=== PATIENT | female | born 1950 | race African-American/Black ===

== ENCOUNTER 2018-03-23 18:30 | Inpatient (IN) | payer MEDICARE, OTHER ==
[~2018-03-23] VITALS: Ht 162.6 cm; Wt 53.1 kg
[2018-03-23] MEDS ORDERED: ONDANSETRON HCL 4MG/2ML INJ IV ONE (18:45)
[2018-03-23] MEDS ORDERED: METHYLPREDNISOLONE SOD SUCC 125 MG/2 ML VIAL IV ONE (18:45)
[2018-03-23] MEDS ORDERED: ALBUTEROL (0.083%) 2.5MG/3ML NEB HHN ONE (18:45)
[2018-03-23 19:33] LABS: CHLORIDE 105 mEq/L (98-107)
[2018-03-23 19:37] LABS: ETHANOL BLOOD < 10 mg/dL
[2018-03-23] MEDS ORDERED: MAGNESIUM 2 G PREMIX 50 ML IV ONE (20:45)
[2018-03-23 20:53] LABS: BASOPHILS % 0.7 % (0.0-2.0); EOSINOPHILS % 0.6 % (0.0-5.0); HEMATOCRIT. 47.9 % (36.0-48.0); HEMOGLOBIN. 15.8 g/dL (12.0-16.0); LYMPHOCYTES % 17.7 % (20.0-50.0); MEAN CORPUSCULAR HEMOGLOBIN 30.9 pg (28.0-32.0); MEAN CORPUSCULAR VOLUME 93.5 fL (81.0-99.0); MEAN PLATELET VOLUME 6.9 fl (7.4-10.4); MONOCYTES % 11.3 % (2.0-8.0); NEUTROPHILS % 69.7 % (40.0-76.0); PLATELET 230 x1000/uL (130-400); RED BLOOD CELL COUNT 5.13 mill/uL (4.2-5.4); RED CELL DISTRIBUTION WIDTH 13.7 % (11.6-14.6)
[2018-03-23 21:29] LABS: INR 1.1; PROTHROMBIN TIME 10.7 sec (9.1-11.1)
[2018-03-23] MEDS ORDERED: CLONIDINE 0.1MG TABLET PO PRN (21:45)
[2018-03-23] MEDS ORDERED: IPRATROPIUM/ALBUTEROL 0.5-3(2.5)MG/3ML NEB INH SCH (21:45)
[2018-03-23] MEDS ORDERED: IPRATROPIUM/ALBUTEROL 0.5-3(2.5)MG/3ML NEB INH PRN (21:45)
[2018-03-23] MEDS ORDERED: ONDANSETRON HCL 4MG/2ML INJ IV PRN (21:45)
[2018-03-23] MEDS ORDERED: HYDROCODONE/ACETAMINOPHEN 5/325MG TABLET PO PRN (21:45)
[2018-03-23] MEDS ORDERED: ACETAMINOPHEN 325MG TABLET PO PRN (21:45)
[2018-03-23] MEDS ORDERED: GUAIFENESIN 200MG/10ML SUGAR FREE UDC PO PRN (21:45)
[2018-03-23] MEDS ORDERED: DOCUSATE SODIUM 100MG CAPSULE PO PRN (21:45)
[2018-03-23] MEDS ORDERED: MAGNESIUM/ALUMINUM HYDROXIDE/SIMETHICONE 30ML UDC PO PRN (21:45)
[2018-03-24] VITALS (11 sets, daily range): BP systolic 106–154; BP diastolic 47–90
[2018-03-24 00:11] LABS: *AMPHETAMINES SCREEN URINE NEGATIVE (NEGATIVE); *BARBITURATES SCREEN URINE NEGATIVE (NEGATIVE)
[2018-03-24 00:13] LABS: *BENZODIAZEPINES SCREEN URINE NEGATIVE (NEGATIVE); *COCAINE SCREEN URINE NEGATIVE (NEGATIVE); CANNABINOID URINE SCREEN NEGATIVE (NEGATIVE); METHADONE URINE SCREEN NEGATIVE (NEGATIVE); OPIATES URINE SCREEN PRESUMTIVE POSITIVE (NEGATIVE); PHENCYCLIDINE URINE SCREEN NEGATIVE (NEGATIVE)
[2018-03-24 02:24] LABS: CHLORIDE 104 mEq/L (98-107)
[2018-03-24 02:32] LABS: CREATINE KINASE 181 IU/L (26-192)
[2018-03-24 02:34] LABS: CREATINE KINASE MB FRACTION 3.6 ng/mL (0.5-3.6)
[2018-03-24] MEDS: METHYLPREDNISOLONE SOD SUCC 40 MG/ML VIAL IV SCH ×2 (05:44→13:51)
[2018-03-24] MEDS: PANTOPRAZOLE 40MG DR TABLET PO SCH (05:47)
[2018-03-24] MEDS: IPRATROPIUM/ALBUTEROL 0.5-3(2.5)MG/3ML NEB INH SCH ×4 (08:27→20:03)
[2018-03-24] MEDS: ENOXAPARIN 40MG/0.4ML SYR SUBCUT SCH (08:58)
[2018-03-24] MEDS ORDERED: HYDR-4009 MT (10:27)
[2018-03-24] MEDS ORDERED: S350 MT (10:27)
[2018-03-24] MEDS ORDERED: LISI30TA36 MT (10:27)
[2018-03-24 10:32] LABS: BASOPHILS % 0.4 % (0.0-2.0); HEMATOCRIT. 46.1 % (36.0-48.0); HEMOGLOBIN. 15.3 g/dL (12.0-16.0); LYMPHOCYTES % 17.9 % (20.0-50.0); MEAN CORPUSCULAR VOLUME 93.3 fL (81.0-99.0); MEAN PLATELET VOLUME 6.8 fl (7.4-10.4); MONOCYTES % 2.5 % (2.0-8.0); NEUTROPHILS % 79.2 % (40.0-76.0); PLATELET 222 x1000/uL (130-400); RED BLOOD CELL COUNT 4.95 mill/uL (4.2-5.4); RED CELL DISTRIBUTION WIDTH 13.7 % (11.6-14.6)
[2018-03-24] MEDS ORDERED: ALBU2.5V13 NEB (10:32)
[2018-03-24] MEDS ORDERED: OXYC-611 MT (10:32)
[2018-03-24] MEDS ORDERED: CYCLOBENZAPRINE 10MG TABLET PO PRN (10:45)
[2018-03-24 11:27] LABS: BG BASE EXCESS 3.7 mmol/L (-2.0-2.0); BG CARBOXYHEMOGLOBIN 0.6 % (0.5-1.5); BG FRACTION INSPIRED OXYGEN 28; BG HCO3 ACT 29.1 mmol/L (22.0-26.0); BG METHEMOGLOBIN 0.2 % (0.0-1.5); BG OXYGEN SATURATION 86.9 % (92.0-98.5); BG OXYHEMOGLOBIN 86.2 % (94.0-97.0); BG PCO2 46.7 mmHg (35.0-45.0); BG PH 7.413 (7.350-7.450); BG PO2 50.7 mmHg (75.0-100.0); BG SAMPLE SITE RIGHT BRACHIAL; BG TOTAL HEMOGLOBIN 15.7 g/dL (12.0-18.0); BG VENT MODE NASAL CANNULA
[2018-03-24] MEDS ORDERED: CARISOPRODOL 350 MG TABLET PO PRN (11:45)
[2018-03-24 12:03] LABS: LDL CHOLESTEROL 107 mg/dL (5-100)
[2018-03-24 12:04] LABS: CREATINE KINASE 190 IU/L (26-192); HDL CHOLESTEROL 76 mg/dL (40-59)
[2018-03-24 12:06] LABS: CREATINE KINASE MB FRACTION 4.1 ng/mL (0.5-3.6)
[2018-03-24] MEDS: NICOTINE 14MG PATCH TD SCH (12:46)
[2018-03-24] MEDS: LISINOPRIL 10MG TABLET PO SCH (12:47)
[2018-03-24] MEDS ORDERED: AMLO2.5T45 MT (13:07)
[2018-03-24] MEDS ORDERED: ZOLP5TAB2 PO (13:17)
[2018-03-24] MEDS: OXYCODONE HCL 10MG TABLET SR 12HR PO SCH ×2 (13:52→20:27)
[2018-03-24] MEDS: AMLODIPINE 2.5MG TABLET PO SCH (13:52)
[2018-03-24] MEDS: BUDESONIDE 0.5MG/2ML NEB HHN SCH (20:03)
[2018-03-24] MEDS: CARISOPRODOL 350 MG TABLET PO PRN (21:35)
[2018-03-25] VITALS (13 sets, daily range): BP systolic 88–137; BP diastolic 56–81
[2018-03-25] MEDS: IPRATROPIUM/ALBUTEROL 0.5-3(2.5)MG/3ML NEB INH SCH ×6 (00:19→20:00)
[2018-03-25] MEDS: ZOLPIDEM TARTRATE 5MG TABLET PO PRN (00:35)
[2018-03-25] MEDS: HYDROCODONE/ACETAMINOPHEN 10/325MG TABLET PO PRN ×2 (00:35→17:55)
[2018-03-25] MEDS: BUDESONIDE 0.5MG/2ML NEB HHN SCH ×2 (08:34→20:00)
[2018-03-25] MEDS: OXYCODONE HCL 10MG TABLET SR 12HR PO SCH ×2 (09:03→20:46)
[2018-03-25] MEDS: NICOTINE 14MG PATCH TD SCH (09:04)
[2018-03-25] MEDS: LISINOPRIL 10MG TABLET PO SCH (09:04)
[2018-03-25] MEDS: PREDNISONE 20MG TABLET PO SCH (09:05)
[2018-03-25] MEDS: ENOXAPARIN 40MG/0.4ML SYR SUBCUT SCH (09:06)
[2018-03-25] MEDS: PANTOPRAZOLE 40MG DR TABLET PO SCH (09:19)
[2018-03-25 09:39] LABS: BASOPHILS % 0.5 % (0.0-2.0); EOSINOPHILS % 0.1 % (0.0-5.0); HEMATOCRIT. 45.7 % (36.0-48.0); HEMOGLOBIN. 15.1 g/dL (12.0-16.0); LYMPHOCYTES % 15.2 % (20.0-50.0); MEAN CORPUSCULAR HEMOGLOBIN 30.8 pg (28.0-32.0); MEAN CORPUSCULAR VOLUME 93.3 fL (81.0-99.0); MEAN PLATELET VOLUME 6.7 fl (7.4-10.4); MONOCYTES % 6.5 % (2.0-8.0); NEUTROPHILS % 77.7 % (40.0-76.0); PLATELET 215 x1000/uL (130-400); RED CELL DISTRIBUTION WIDTH 13.7 % (11.6-14.6)
[2018-03-25] MEDS: AMLODIPINE 2.5MG TABLET PO SCH (10:00)
[2018-03-25 10:08] LABS: CHLORIDE 101 mEq/L (98-107)
[2018-03-25] MEDS: CARISOPRODOL 350 MG TABLET PO PRN (12:09)
[2018-03-25] MEDS ORDERED: IPRA3AMP9 NEB (19:04)
[2018-03-25] MEDS ORDERED: PANT40TA4 PO (19:04)
[2018-03-25] MEDS ORDERED: FLUT1AER IH (19:04)
[2018-03-26] VITALS (10 sets, daily range): BP systolic 96–113; BP diastolic 61–76
[2018-03-26] MEDS: IPRATROPIUM/ALBUTEROL 0.5-3(2.5)MG/3ML NEB INH SCH ×4 (00:22→12:13)
[2018-03-26] MEDS: ZOLPIDEM TARTRATE 5MG TABLET PO PRN (00:31)
[2018-03-26] MEDS: CARISOPRODOL 350 MG TABLET PO PRN (00:31)
[2018-03-26] MEDS: BUDESONIDE 0.5MG/2ML NEB HHN SCH (08:18)
[2018-03-26] MEDS: PANTOPRAZOLE 40MG DR TABLET PO SCH (08:20)
[2018-03-26] MEDS: ENOXAPARIN 40MG/0.4ML SYR SUBCUT SCH (08:21)
[2018-03-26] MEDS: NICOTINE 14MG PATCH TD SCH (08:22)
[2018-03-26] MEDS: LISINOPRIL 10MG TABLET PO SCH (08:22)
[2018-03-26] MEDS: PREDNISONE 20MG TABLET PO SCH (08:23)
[2018-03-26] MEDS: AMLODIPINE 2.5MG TABLET PO SCH (08:23)
[2018-03-26] MEDS: OXYCODONE HCL 10MG TABLET SR 12HR PO SCH (08:25)
[2018-03-26] MEDS ORDERED: FLUT1DIS3 INH (10:23)
[2018-03-26] MEDS ORDERED: ALPRAZOLAM 0.5 MG TABLET PO PRN (12:30)
== END 2018-03-26 17:00 | disposition home or self-care (01) | DRG 189 ==
LOC: ER 18:30 → 5EST 20:35 → EDBEDREQTM 20:38 → EDBEDREQSVC 20:38 → EDBEDREQ 20:38 → ENRESERV 23:37
PROVIDERS: ADMIT Internal Medicine; ATTEND Internal Medicine
PROC: 5A09357 Assistance with Respiratory Ventilation, Less than 24 Consecutive Hours, Continuous Positive Airway Pressure (ICD-10-PCS; principal; 2018-03-23)
DX: J96.01 Acute respiratory failure with hypoxia (principal); J44.1 Chronic obstructive pulmonary disease with (acute) exacerbation; F11.20 Opioid dependence, uncomplicated; F17.210 Nicotine dependence, cigarettes, uncomplicated; I10 Essential (primary) hypertension; M62.838 Other muscle spasm; Z99.81 Dependence on supplemental oxygen; Z79.51 Long term (current) use of inhaled steroids; Z79.899 Other long term (current) drug therapy
CPT/HCPCS: 36415; 36600; 71045; 80048; 80061; 80305; 82375; 82550; 82553; 82805; 83735; 83880; 84443; 84484; 93005; 93970; 94640; 94660; 96374; 96375; 99291; G0482; J1650; J2405; J2920; J2930; J3475; J7512; J7620; J7626

== ENCOUNTER 2019-03-21 05:12 | Inpatient (IN) | payer MEDICAID, MEDICARE ==
[2019-03-21] VITALS (8 sets, daily range): BP systolic 91–133; BP diastolic 56–75
[~2019-03-21] VITALS: Ht 162.6 cm; Wt 53.5 kg
[~2019-03-21 05:12] MED LIST: ALBU2.5V13 NEB; AMLO2.5T45 MT; CARI-166 MT; FLUT1DIS3 INH; HYDR-4009 MT; IPRA3AMP9 NEB; LISI30TA36 MT; OXYC-611 MT; PANT40TA4 PO; ZOLP5TAB2 PO
[2019-03-21] MEDS ORDERED: METHYLPREDNISOLONE SOD SUCC 125 MG/2 ML VIAL IV STA (05:14)
[2019-03-21] MEDS ORDERED: ONDANSETRON HCL 4MG/2ML INJ IV STA (05:14)
[2019-03-21] MEDS ORDERED: IPRATROPIUM BROMIDE (0.02%) 0.5MG/2.5ML NEB HHN STA (05:14)
[2019-03-21] MEDS ORDERED: MAGNESIUM 2 G PREMIX 50 ML IV ONE (05:15)
[2019-03-21] MEDS: ALBUTEROL (0.083%) 2.5MG/3ML NEB HHN SCH (05:30)
[2019-03-21 06:03] LABS: BG BASE EXCESS 6.5 mmol/L (-2.0-2.0); BG BILEVEL POS AIRWAY PRESSURE 18/5; BG CARBOXYHEMOGLOBIN 1.4 % (0.5-1.5); BG DEOXYHEMOGLOBIN 1.4 % (0.0-5.0); BG FRACTION INSPIRED OXYGEN 50; BG HCO3 ACT 33.4 mmol/L (22.0-26.0); BG OXYGEN SATURATION 98.6 % (92.0-98.5); BG OXYHEMOGLOBIN 97.2 % (94.0-97.0); BG PCO2 59.6 mmHg (35.0-45.0); BG PH 7.367 (7.350-7.450); BG PO2 146.2 mmHg (75.0-100.0); BG SAMPLE SITE RIGHT RADIAL; BG TOTAL HEMOGLOBIN 11.9 g/dL (12.0-18.0); BG VENT MODE MASK - BIPAP; BG VENT RATE 20 set
[2019-03-21 06:06] LABS: BASOPHILS % 0.3 % (0.0-2.0); EOSINOPHILS % 0.1 % (0.0-5.0); HEMATOCRIT. 36.3 % (36.0-48.0); HEMOGLOBIN. 11.7 g/dL (12.0-16.0); LYMPHOCYTES % 27.6 % (20.0-50.0); MEAN CORPUSCULAR HEMOGLOBIN 31.4 pg (28.0-32.0); MEAN CORPUSCULAR VOLUME 97.5 fL (81.0-99.0); MEAN PLATELET VOLUME 6.5 fl (7.4-10.4); PLATELET 412 x1000/uL (130-400); RED BLOOD CELL COUNT 3.72 mill/uL (4.2-5.4); RED CELL DISTRIBUTION WIDTH 15.5 % (11.6-14.6)
[2019-03-21 06:11] LABS: CHLORIDE 105 mEq/L (98-107)
[2019-03-21] MEDS ORDERED: VANCOMYCIN 1 G PREMIX 200 ML IV ONE (06:30)
[2019-03-21] MEDS ORDERED: PIPERACILLIN/TAZ 3.375G PREMIX 50 ML IV ONE (06:30)
[2019-03-21] MEDS ORDERED: ONDANSETRON HCL 4MG/2ML INJ IV PRN (07:30)
[2019-03-21] MEDS: IPRATROPIUM BROMIDE (0.02%) 0.5MG/2.5ML NEB HHN SCH ×3 (12:42→21:04)
[2019-03-21] MEDS: METHYLPREDNISOLONE SOD SUCC 40 MG/ML VIAL IV SCH ×2 (12:43→17:14)
[2019-03-21] MEDS ORDERED: FUROSEMIDE 40MG/4ML VIAL IVP NR (14:30)
[2019-03-21 14:31] LABS: CLARITY URINE CLEAR (CLEAR); COLOR URINE YELLOW (YELLOW); KETONES URINE NEGATIVE (NEGATIVE); LEUKOCYTE ESTERASE URINE NEGATIVE (NEGATIVE); NITRITE URINE NEGATIVE (NEGATIVE); OCCULT BLOOD URINE NEGATIVE (NEGATIVE); PH URINE 7.5 (4.5-8.0); PROTEIN URINE NEGATIVE (NEGATIVE); SPECIFIC GRAVITY URINE 1.011 (1.005-1.030); UROBILINOGEN URINE 0.2 E.U./dL (0.2-1.0)
[2019-03-21 14:50] LABS: CANNABINOID URINE SCREEN NEGATIVE (NEGATIVE); PHENCYCLIDINE URINE SCREEN NEGATIVE (NEGATIVE)
[2019-03-21 14:52] LABS: *COCAINE SCREEN URINE NEGATIVE (NEGATIVE)
[2019-03-21 14:53] LABS: OPIATES URINE SCREEN PRESUMTIVE POSITIVE (NEGATIVE)
[2019-03-21 14:56] LABS: METHADONE URINE SCREEN NEGATIVE (NEGATIVE)
[2019-03-21 14:57] LABS: *AMPHETAMINES SCREEN URINE NEGATIVE (NEGATIVE); *BARBITURATES SCREEN URINE NEGATIVE (NEGATIVE)
[2019-03-21 14:59] LABS: *BENZODIAZEPINES SCREEN URINE NEGATIVE (NEGATIVE)
[2019-03-21] MEDS ORDERED: IPRATROPIUM/ALBUTEROL 0.5-3(2.5)MG/3ML NEB HHN PRN (16:15)
[2019-03-21] MEDS ORDERED: BISACODYL 5MG TABLET PO PRN (17:00)
[2019-03-21] MEDS: DOCUSATE SODIUM 100MG CAPSULE PO SCH (17:14)
[2019-03-21] MEDS: ACETAMINOPHEN 325MG TABLET PO PRN (17:15)
[2019-03-22] VITALS (9 sets, daily range): BP systolic 95–121; BP diastolic 52–77
[2019-03-22] MEDS: IPRATROPIUM BROMIDE (0.02%) 0.5MG/2.5ML NEB HHN SCH ×6 (00:09→21:17)
[2019-03-22] MEDS: ACETAMINOPHEN 325MG TABLET PO PRN (00:32)
[2019-03-22] MEDS: METHYLPREDNISOLONE SOD SUCC 40 MG/ML VIAL IV SCH ×2 (01:07→10:05)
[2019-03-22] MEDS: DOCUSATE SODIUM 100MG CAPSULE PO SCH (08:15)
[2019-03-22] MEDS: FUROSEMIDE 40MG/4ML VIAL IVP SCH (08:15)
[2019-03-22] MEDS ORDERED: KETOROLAC 30MG/ML VIAL IV PRN (10:00)
[2019-03-22] MEDS ORDERED: KETOROLAC 15MG/ML VIAL IV PRN (10:00)
[2019-03-22] MEDS: HYDROCODONE/ACETAMINOPHEN 5/325MG TABLET PO PRN ×3 (11:39→20:33)
[2019-03-22 14:58] LABS: BASOPHILS % 0.5 % (0.0-2.0); EOSINOPHILS % 0.6 % (0.0-5.0); HEMOGLOBIN. 12.6 g/dL (12.0-16.0); LYMPHOCYTES % 9.3 % (20.0-50.0); MEAN CORPUSCULAR HEMOGLOBIN 31.6 pg (28.0-32.0); MEAN CORPUSCULAR VOLUME 95.6 fL (81.0-99.0); MEAN PLATELET VOLUME 6.7 fl (7.4-10.4); MONOCYTES % 3.8 % (2.0-8.0); NEUTROPHILS % 85.8 % (40.0-76.0); PLATELET 428 x1000/uL (130-400); RED BLOOD CELL COUNT 3.97 mill/uL (4.2-5.4)
[2019-03-22 15:11] LABS: CHLORIDE 96 mEq/L (98-107)
[2019-03-22] MEDS: GUAIFENESIN 600MG ER TABLET PO SCH (20:31)
[2019-03-23] VITALS: BP 124/76
[2019-03-23] MEDS: IPRATROPIUM BROMIDE (0.02%) 0.5MG/2.5ML NEB HHN SCH ×5 (00:48→17:19)
[2019-03-23 04:00] VITALS: BP 130/78
[2019-03-23 08:26] LABS: EOSINOPHILS % 0.1 % (0.0-5.0); HEMATOCRIT. 39.7 % (36.0-48.0); HEMOGLOBIN. 13.1 g/dL (12.0-16.0); LYMPHOCYTES % 23.8 % (20.0-50.0); MEAN CORPUSCULAR HEMOGLOBIN 31.1 pg (28.0-32.0); MEAN CORPUSCULAR VOLUME 94.5 fL (81.0-99.0); MEAN PLATELET VOLUME 6.6 fl (7.4-10.4); MONOCYTES % 10.9 % (2.0-8.0); NEUTROPHILS % 64.2 % (40.0-76.0); PLATELET 440 x1000/uL (130-400)
[2019-03-23 08:31] VITALS: BP 108/63
[2019-03-23 08:31] LABS: CHLORIDE 97 mEq/L (98-107)
[2019-03-23] MEDS: GUAIFENESIN 600MG ER TABLET PO SCH (08:56)
[2019-03-23] MEDS: DOCUSATE SODIUM 100MG CAPSULE PO SCH (08:56)
[2019-03-23] MEDS: FUROSEMIDE 40MG/4ML VIAL IVP SCH (08:56)
[2019-03-23] MEDS ORDERED: PREDNISONE 20MG TABLET PO SCH (09:00)
[2019-03-23] MEDS: HYDROCODONE/ACETAMINOPHEN 5/325MG TABLET PO PRN ×2 (09:07→13:45)
[2019-03-23] MEDS ORDERED: POTASSIUM CHLORIDE 20MEQ TABLET SR PO SCH (11:15)
[2019-03-23] MEDS ORDERED: P20 MT (11:38)
[2019-03-23] MEDS ORDERED: HYDR-4001 MT (11:38)
[2019-03-23 14:48] VITALS: BP 110/65
[2019-03-23 16:33] VITALS: BP 100/67
== END 2019-03-23 18:22 | disposition home health service (06) | DRG 291 ==
LOC: ER 05:12 → 3WST 05:37 → EDBEDREQSVC 05:39 → EDBEDREQTM 05:39 → EDBEDREQ 05:39 → ENRESERV 09:50 → 8WST 03-22 15:04
PROVIDERS: ADMIT Internal Medicine; ATTEND Internal Medicine
PROC: 5A09357 Assistance with Respiratory Ventilation, Less than 24 Consecutive Hours, Continuous Positive Airway Pressure (ICD-10-PCS; principal; 2019-03-21)
DX: I11.0 Hypertensive heart disease with heart failure (principal); J96.21 Acute and chronic respiratory failure with hypoxia; J44.1 Chronic obstructive pulmonary disease with (acute) exacerbation; E44.1 Mild protein-calorie malnutrition; E87.2 Acidosis; I50.43 Acute on chronic combined systolic (congestive) and diastolic (congestive) heart failure; D72.821 Monocytosis (symptomatic); I07.1 Rheumatic tricuspid insufficiency; I27.20 Pulmonary hypertension, unspecified; K59.00 Constipation, unspecified; F17.210 Nicotine dependence, cigarettes, uncomplicated; Z82.49 Family history of ischemic heart disease and other diseases of the circulatory system; Z82.3 Family history of stroke; Z99.81 Dependence on supplemental oxygen; Z68.20 Body mass index [BMI] 20.0-20.9, adult; Z79.899 Other long term (current) drug therapy; Z71.6 Tobacco abuse counseling
CPT/HCPCS: 36415; 36600; 71045; 80048; 80305; 81003; 82375; 82805; 83605; 83880; 84484; 93005; 93306; 94640; 94644; 94660; 97116; 97161; 97166; 99291; J1940; J2405; J2543; J2920; J2930; J3370; J3475; J7512; J7611

== ENCOUNTER 2019-04-16 00:40 | Inpatient (IN) | payer MEDICARE ==
[~2019-04-16] VITALS: Ht 162.6 cm; Wt 57.2 kg
[~2019-04-16 00:40] MED LIST changes: -CARI-166 MT; +CARI350T28 MT; +HYDR-4001 MT; +P20 MT
[2019-04-16] MEDS ORDERED: IPRATROPIUM BROMIDE (0.02%) 0.5MG/2.5ML NEB HHN STA (00:43)
[2019-04-16] MEDS ORDERED: METHYLPREDNISOLONE SOD SUCC 125 MG/2 ML VIAL IV STA (00:43)
[2019-04-16] MEDS ORDERED: ALBUTEROL (0.083%) 2.5MG/3ML NEB HHN STA (00:43)
[2019-04-16] MEDS ORDERED: MAGNESIUM 2 G PREMIX 50 ML IV ONE (00:45)
[2019-04-16 01:09] LABS: HEMATOCRIT. 39.4 % (36.0-48.0); HEMOGLOBIN. 12.9 g/dL (12.0-16.0); LYMPHOCYTES % 9.5 % (20.0-50.0); MEAN CORPUSCULAR HEMOGLOBIN 30.9 pg (28.0-32.0); MEAN CORPUSCULAR VOLUME 94.7 fL (81.0-99.0); MEAN PLATELET VOLUME 6.6 fl (7.4-10.4); MONOCYTES % 4.9 % (2.0-8.0); NEUTROPHILS % 84.6 % (40.0-76.0); PLATELET 262 x1000/uL (130-400); RED BLOOD CELL COUNT 4.16 mill/uL (4.2-5.4); RED CELL DISTRIBUTION WIDTH 14.5 % (11.6-14.6)
[2019-04-16 01:18] LABS: PROTHROMBIN TIME 10.8 sec (9.6-11.0)
[2019-04-16 01:25] LABS: CHLORIDE 97 mEq/L (98-107)
[2019-04-16] MEDS ORDERED: DOXYCYCLINE HYCLATE 100 MG/VIAL IV ONE (01:30)
[2019-04-16 01:51] LABS: BG BASE EXCESS 5.7 mmol/L (-2.0-2.0); BG BILEVEL POS AIRWAY PRESSURE 15/5; BG CARBOXYHEMOGLOBIN 1.2 % (0.5-1.5); BG DEOXYHEMOGLOBIN 3.7 % (0.0-5.0); BG FRACTION INSPIRED OXYGEN 60; BG HCO3 ACT 33.4 mmol/L (22.0-26.0); BG METHEMOGLOBIN 0.2 % (0.0-1.5); BG OXYGEN SATURATION 96.2 % (92.0-98.5); BG OXYHEMOGLOBIN 94.9 % (94.0-97.0); BG PCO2 62.9 mmHg (35.0-45.0); BG PH 7.343 (7.350-7.450); BG PO2 85.9 mmHg (75.0-100.0); BG SAMPLE SITE RIGHT RADIAL; BG TOTAL HEMOGLOBIN 13.7 g/dL (12.0-18.0); BG VENT MODE MASK - BIPAP; BG VENT RATE 16 set
[2019-04-16] MEDS ORDERED: DOXYCYCLINE 100 MG in SODIUM CHLORIDE 0.9% 100 ML IV SCH (03:00)
[2019-04-16] MEDS ORDERED: ONDANSETRON HCL 4MG/2ML INJ IV PRN (04:00)
[2019-04-16] MEDS ORDERED: LEVOFLOXACIN 500MG PREMIX 100 ML IV SCH (04:00)
[2019-04-16] MEDS ORDERED: ENOXAPARIN 40MG/0.4ML SYR SUBCUT SCH (04:00)
[2019-04-16] MEDS ORDERED: HYDRALAZINE 20MG/ML VIAL IV PRN (04:00)
[2019-04-16] MEDS ORDERED: DIPHENHYDRAMINE 50MG/ML VIAL IV PRN (04:00)
[2019-04-16] MEDS ORDERED: IPRATROPIUM/ALBUTEROL 0.5-3(2.5)MG/3ML NEB HHN SCH (04:00)
[2019-04-16] MEDS ORDERED: GUAIFENESIN 200MG/10ML SUGAR FREE UDC PO PRN (04:00)
[2019-04-16] MEDS ORDERED: IPRATROPIUM/ALBUTEROL 0.5-3(2.5)MG/3ML NEB NEB PRN (04:00)
[2019-04-16] MEDS ORDERED: MAGNESIUM/ALUMINUM HYDROXIDE/SIMETHICONE 30ML UDC PO PRN (04:00)
[2019-04-16] MEDS ORDERED: LORAZEPAM 2MG/ML CPJ IV PRN (04:30)
[2019-04-16] MEDS: SODIUM CHLORIDE 0.9% INJ 3ML FLUSH IVF SCH ×3 (06:00→22:40)
[2019-04-16] MEDS ORDERED: METHYLPREDNISOLONE SOD SUCC 125 MG/2 ML VIAL IV SCH (06:00)
[2019-04-16] MEDS: CLONIDINE 0.1MG TABLET PO PRN (07:30)
[2019-04-16] MEDS: IPRATROPIUM/ALBUTEROL 0.5-3(2.5)MG/3ML NEB HHN SCH ×5 (07:48→23:54)
[2019-04-16] MEDS: KETOROLAC 30MG/ML VIAL IV PRN (07:48)
[2019-04-16 08:50] VITALS: BP 133/72
[2019-04-16] MEDS ORDERED: AMLODIPINE 5MG TABLET PO SCH (10:00)
[2019-04-16] MEDS ORDERED: PROMETHAZINE/DEXTROMETHORPHAN 6.25-15MG/5ML BOTTLE 120ML PO PRN (10:00)
[2019-04-16] MEDS: GUAIFENESIN 600MG ER TABLET PO SCH ×2 (10:44→21:39)
[2019-04-16] MEDS: NICOTINE 21MG PATCH TD SCH (10:44)
[2019-04-16] MEDS: FAMOTIDINE 20MG TABLET PO SCH ×2 (10:45→21:39)
[2019-04-16] MEDS: ACETAMINOPHEN 325MG TABLET PO PRN ×2 (10:46→21:40)
[2019-04-16] MEDS ORDERED: GUAIFENESIN-DM 200MG-20MG/10ML UDC PO PRN (13:45)
[2019-04-16] MEDS: METHYLPREDNISOLONE SOD SUCC 125 MG/2 ML VIAL IV SCH ×3 (13:47→22:00)
[2019-04-16] MEDS: ENOXAPARIN 40MG/0.4ML SYR SUBCUT SCH (13:49)
[2019-04-16 14:38] LABS: BG BASE EXCESS 3.2 mmol/L (-2.0-2.0); BG CARBOXYHEMOGLOBIN 0.9 % (0.5-1.5); BG DEOXYHEMOGLOBIN 4.9 % (0.0-5.0); BG FRACTION INSPIRED OXYGEN 32; BG HCO3 ACT 31.4 mmol/L (22.0-26.0); BG METHEMOGLOBIN 0.2 % (0.0-1.5); BG PCO2 65.3 mmHg (35.0-45.0); BG PO2 80.4 mmHg (75.0-100.0); BG SAMPLE SITE RIGHT BRACHIAL; BG TOTAL HEMOGLOBIN 13.6 g/dL (12.0-18.0); BG VENT MODE NASAL CANNULA
[2019-04-16 16:00] VITALS: BP 143/81
[2019-04-16] MEDS: LEVOFLOXACIN 500MG PREMIX 100 ML IV SCH (16:47)
[2019-04-16] MEDS: AMLODIPINE 2.5MG TABLET PO SCH (17:59)
[2019-04-16] MEDS: SILDENAFIL CITRATE 20MG TABLET PO SCH ×2 (18:00→22:39)
[2019-04-16 20:00] VITALS: BP 158/98
[2019-04-16] MEDS ORDERED: MAGNESIUM 2 G PREMIX 50 ML IV NR (22:00)
[2019-04-17] VITALS (7 sets, daily range): BP systolic 125–166; BP diastolic 73–99
[2019-04-17] MEDS: IPRATROPIUM/ALBUTEROL 0.5-3(2.5)MG/3ML NEB HHN SCH ×5 (04:02→21:24)
[2019-04-17] MEDS: SODIUM CHLORIDE 0.9% INJ 3ML FLUSH IVF SCH ×2 (06:22→14:08)
[2019-04-17] MEDS: METHYLPREDNISOLONE SOD SUCC 125 MG/2 ML VIAL IV SCH ×3 (06:23→21:20)
[2019-04-17] MEDS: SILDENAFIL CITRATE 20MG TABLET PO SCH ×3 (06:30→21:21)
[2019-04-17 09:07] LABS: BG BASE EXCESS 8.6 mmol/L (-2.0-2.0); BG BILEVEL POS AIRWAY PRESSURE 15/5; BG CARBOXYHEMOGLOBIN 0.9 % (0.5-1.5); BG DEOXYHEMOGLOBIN 4.7 % (0.0-5.0); BG FRACTION INSPIRED OXYGEN 35; BG HCO3 ACT 36.5 mmol/L (22.0-26.0); BG OXYGEN SATURATION 95.3 % (92.0-98.5); BG OXYHEMOGLOBIN 94.4 % (94.0-97.0); BG PCO2 64.4 mmHg (35.0-45.0); BG PH 7.371 (7.350-7.450); BG PO2 80.3 mmHg (75.0-100.0); BG SAMPLE SITE RIGHT RADIAL; BG TOTAL HEMOGLOBIN 14.6 g/dL (12.0-18.0); BG VENT MODE MASK - BIPAP; BG VENT RATE 14 set
[2019-04-17] MEDS: AMLODIPINE 2.5MG TABLET PO SCH (09:53)
[2019-04-17] MEDS: GUAIFENESIN 600MG ER TABLET PO SCH ×2 (09:53→21:20)
[2019-04-17] MEDS: FAMOTIDINE 20MG TABLET PO SCH ×2 (09:53→21:20)
[2019-04-17] MEDS: NICOTINE 21MG PATCH TD SCH (09:53)
[2019-04-17] MEDS: ENOXAPARIN 40MG/0.4ML SYR SUBCUT SCH (11:55)
[2019-04-17] MEDS: CLONIDINE 0.1MG TABLET PO PRN ×2 (11:57→21:30)
[2019-04-17] MEDS: LEVOFLOXACIN 500MG PREMIX 100 ML IV SCH (13:52)
[2019-04-17] MEDS: KETOROLAC 30MG/ML VIAL IV PRN (17:11)
[2019-04-18] VITALS (12 sets, daily range): BP systolic 105–146; BP diastolic 54–95
[2019-04-18] MEDS: IPRATROPIUM/ALBUTEROL 0.5-3(2.5)MG/3ML NEB HHN SCH ×6 (01:23→20:28)
[2019-04-18] MEDS: SILDENAFIL CITRATE 20MG TABLET PO SCH ×3 (05:57→21:07)
[2019-04-18] MEDS: SODIUM CHLORIDE 0.9% INJ 3ML FLUSH IVF SCH ×4 (05:58→22:00)
[2019-04-18] MEDS: AMLODIPINE 2.5MG TABLET PO SCH (08:27)
[2019-04-18] MEDS: GUAIFENESIN 600MG ER TABLET PO SCH ×2 (08:27→21:06)
[2019-04-18] MEDS: METHYLPREDNISOLONE SOD SUCC 125 MG/2 ML VIAL IV SCH ×2 (08:27→21:06)
[2019-04-18] MEDS: FAMOTIDINE 20MG TABLET PO SCH ×2 (08:27→21:07)
[2019-04-18] MEDS: KETOROLAC 30MG/ML VIAL IV PRN (08:29)
[2019-04-18] MEDS: NICOTINE 21MG PATCH TD SCH (08:35)
[2019-04-18 10:35] LABS: BG BASE EXCESS 6.4 mmol/L (-2.0-2.0); BG BILEVEL POS AIRWAY PRESSURE 15/5; BG CARBOXYHEMOGLOBIN 0.4 % (0.5-1.5); BG DEOXYHEMOGLOBIN 1.1 % (0.0-5.0); BG FRACTION INSPIRED OXYGEN 46; BG HCO3 ACT 33.5 mmol/L (22.0-26.0); BG METHEMOGLOBIN 0.3 % (0.0-1.5); BG OXYGEN SATURATION 98.9 % (92.0-98.5); BG OXYHEMOGLOBIN 98.2 % (94.0-97.0); BG PCO2 58.6 mmHg (35.0-45.0); BG PH 7.375 (7.350-7.450); BG PO2 154.8 mmHg (75.0-100.0); BG SAMPLE SITE RIGHT RADIAL; BG TOTAL HEMOGLOBIN 14.2 g/dL (12.0-18.0); BG VENT MODE MASK - BIPAP
[2019-04-18] MEDS ORDERED: TERBUTALINE SULFATE 1MG/ML VIAL SUBCUT NR (12:00)
[2019-04-18] MEDS: ENOXAPARIN 40MG/0.4ML SYR SUBCUT SCH (12:31)
[2019-04-18 13:39] LABS: HEMATOCRIT. 40.2 % (36.0-48.0); HEMOGLOBIN. 13.3 g/dL (12.0-16.0); MEAN CORPUSCULAR HEMOGLOBIN 30.8 pg (28.0-32.0); MEAN CORPUSCULAR VOLUME 93.4 fL (81.0-99.0); MEAN PLATELET VOLUME 6.9 fl (7.4-10.4); PLATELET 243 x1000/uL (130-400); RED BLOOD CELL COUNT 4.31 mill/uL (4.2-5.4); RED CELL DISTRIBUTION WIDTH 14.2 % (11.6-14.6)
[2019-04-18 13:45] LABS: CHLORIDE 95 mEq/L (98-107)
[2019-04-18 13:55] LABS: PLATELET ESTIMATE NORMAL
[2019-04-18] MEDS: LEVOFLOXACIN 500MG PREMIX 100 ML IV SCH (14:23)
[2019-04-18] MEDS: HYDROCODONE/ACETAMINOPHEN 10/325MG TABLET PO PRN ×2 (15:23→21:06)
[2019-04-18 15:50] LABS: CLARITY URINE CLEAR (CLEAR); COLOR URINE YELLOW (YELLOW); KETONES URINE NEGATIVE (NEGATIVE); LEUKOCYTE ESTERASE URINE NEGATIVE (NEGATIVE); NITRITE URINE NEGATIVE (NEGATIVE); OCCULT BLOOD URINE NEGATIVE (NEGATIVE); PROTEIN URINE NEGATIVE (NEGATIVE); SPECIFIC GRAVITY URINE 1.013 (1.005-1.030); UROBILINOGEN URINE 0.2 E.U./dL (0.2-1.0)
[2019-04-18 16:11] LABS: OPIATES URINE SCREEN PRESUMTIVE POSITIVE (NEGATIVE)
[2019-04-18 16:12] LABS: *AMPHETAMINES SCREEN URINE NEGATIVE (NEGATIVE); *BARBITURATES SCREEN URINE NEGATIVE (NEGATIVE); *BENZODIAZEPINES SCREEN URINE NEGATIVE (NEGATIVE); *COCAINE SCREEN URINE NEGATIVE (NEGATIVE); CANNABINOID URINE SCREEN NEGATIVE (NEGATIVE); PHENCYCLIDINE URINE SCREEN NEGATIVE (NEGATIVE)
[2019-04-18 16:14] LABS: METHADONE URINE SCREEN NEGATIVE (NEGATIVE)
[2019-04-18] MEDS: MONTELUKAST SODIUM 10MG TABLET PO SCH (18:53)
[2019-04-19] VITALS (12 sets, daily range): BP systolic 110–140; BP diastolic 53–83
[2019-04-19] MEDS: IPRATROPIUM/ALBUTEROL 0.5-3(2.5)MG/3ML NEB HHN SCH ×6 (00:26→21:41)
[2019-04-19] MEDS: HYDROCODONE/ACETAMINOPHEN 10/325MG TABLET PO PRN ×3 (04:01→21:20)
[2019-04-19] MEDS: SODIUM CHLORIDE 0.9% INJ 3ML FLUSH IVF SCH ×3 (05:19→21:13)
[2019-04-19] MEDS: SILDENAFIL CITRATE 20MG TABLET PO SCH ×3 (05:19→21:13)
[2019-04-19] MEDS: AMLODIPINE 2.5MG TABLET PO SCH (08:25)
[2019-04-19] MEDS: FAMOTIDINE 20MG TABLET PO SCH ×2 (08:25→21:13)
[2019-04-19] MEDS: GUAIFENESIN 600MG ER TABLET PO SCH ×2 (08:25→21:13)
[2019-04-19] MEDS: METHYLPREDNISOLONE SOD SUCC 125 MG/2 ML VIAL IV SCH ×2 (08:26→21:14)
[2019-04-19] MEDS: KETOROLAC 30MG/ML VIAL IV PRN ×2 (08:26→17:30)
[2019-04-19] MEDS: NICOTINE 21MG PATCH TD SCH (08:26)
[2019-04-19] MEDS ORDERED: TERBUTALINE SULFATE 1MG/ML VIAL SUBCUT NR (11:45)
[2019-04-19] MEDS: LEVOFLOXACIN 500MG PREMIX 100 ML IV SCH (13:00)
[2019-04-19] MEDS: ENOXAPARIN 40MG/0.4ML SYR SUBCUT SCH (13:00)
[2019-04-19] MEDS: MONTELUKAST SODIUM 10MG TABLET PO SCH (17:29)
[2019-04-19] MEDS: THEOPHYLLINE ANHYDROUS 80 MG/15 ML 120ML PO SCH ×2 (17:30→21:14)
[2019-04-19] MEDS: NORTRIPTYLINE HCL 25MG CAPSULE PO SCH (21:13)
[2019-04-20] VITALS (12 sets, daily range): BP systolic 91–148; BP diastolic 63–96
[2019-04-20] MEDS ORDERED: DILTIAZEM HCL 5MG/ML 5ML VIAL IV ONE
[2019-04-20] MEDS ORDERED: DILTIAZEM HCL 5MG/ML 5ML VIAL IV SCH (02:00)
[2019-04-20] MEDS: DILTIAZEM HCL 125 MG in DEXT 5% WATER 100 ML IV SCH (02:26)
[2019-04-20] MEDS: IPRATROPIUM/ALBUTEROL 0.5-3(2.5)MG/3ML NEB HHN SCH ×3 (03:35→10:12)
[2019-04-20] MEDS: SILDENAFIL CITRATE 20MG TABLET PO SCH ×3 (06:14→22:01)
[2019-04-20] MEDS: THEOPHYLLINE ANHYDROUS 80 MG/15 ML 120ML PO SCH ×3 (06:15→22:01)
[2019-04-20] MEDS: SODIUM CHLORIDE 0.9% INJ 3ML FLUSH IVF SCH ×3 (06:15→22:03)
[2019-04-20] MEDS: HYDROCODONE/ACETAMINOPHEN 10/325MG TABLET PO PRN ×3 (09:08→22:02)
[2019-04-20] MEDS: METHYLPREDNISOLONE SOD SUCC 125 MG/2 ML VIAL IV SCH (09:09)
[2019-04-20] MEDS: FAMOTIDINE 20MG TABLET PO SCH ×2 (09:09→22:01)
[2019-04-20] MEDS: GUAIFENESIN 600MG ER TABLET PO SCH ×2 (09:09→22:02)
[2019-04-20] MEDS: NICOTINE 21MG PATCH TD SCH (09:12)
[2019-04-20] MEDS: DILTIAZEM HCL 30MG TABLET PO SCH ×2 (11:17→17:09)
[2019-04-20] MEDS: ENOXAPARIN 40MG/0.4ML SYR SUBCUT SCH (11:18)
[2019-04-20] MEDS: LEVOFLOXACIN 500MG PREMIX 100 ML IV SCH (11:18)
[2019-04-20] MEDS ORDERED: IPRATROPIUM BROMIDE (0.02%) 0.5MG/2.5ML NEB ONE (12:21)
[2019-04-20] MEDS: IPRATROPIUM BROMIDE (0.02%) 0.5MG/2.5ML NEB HHN SCH ×2 (16:12→20:17)
[2019-04-20] MEDS: MONTELUKAST SODIUM 10MG TABLET PO SCH (17:09)
[2019-04-20] MEDS: NORTRIPTYLINE HCL 25MG CAPSULE PO SCH (21:00)
[2019-04-20] MEDS: METHYLPREDNISOLONE SOD SUCC 40 MG/ML VIAL IV SCH (22:01)
[2019-04-21] VITALS (11 sets, daily range): BP systolic 105–166; BP diastolic 42–94
[2019-04-21] MEDS: DILTIAZEM HCL 30MG TABLET PO SCH ×4 (00:17→18:10)
[2019-04-21] MEDS: IPRATROPIUM BROMIDE (0.02%) 0.5MG/2.5ML NEB HHN SCH ×7 (00:32→23:47)
[2019-04-21] MEDS: THEOPHYLLINE ANHYDROUS 80 MG/15 ML 120ML PO SCH ×3 (05:45→21:33)
[2019-04-21] MEDS: HYDROCODONE/ACETAMINOPHEN 10/325MG TABLET PO PRN ×4 (05:46→22:15)
[2019-04-21] MEDS: SILDENAFIL CITRATE 20MG TABLET PO SCH ×3 (05:46→21:32)
[2019-04-21] MEDS: DILTIAZEM HCL 125 MG in DEXT 5% WATER 100 ML IV SCH (06:18)
[2019-04-21] MEDS: SODIUM CHLORIDE 0.9% INJ 3ML FLUSH IVF SCH ×3 (06:31→20:52)
[2019-04-21] MEDS: METHYLPREDNISOLONE SOD SUCC 40 MG/ML VIAL IV SCH ×2 (10:36→20:51)
[2019-04-21] MEDS: GUAIFENESIN 600MG ER TABLET PO SCH ×2 (10:37→20:51)
[2019-04-21] MEDS: FAMOTIDINE 20MG TABLET PO SCH ×2 (10:37→20:51)
[2019-04-21] MEDS: ENOXAPARIN 40MG/0.4ML SYR SUBCUT SCH (10:37)
[2019-04-21] MEDS: LEVOFLOXACIN 500MG TABLET PO SCH (10:37)
[2019-04-21] MEDS: NICOTINE 21MG PATCH TD SCH (10:38)
[2019-04-21] MEDS ORDERED: OXYCODONE HCL 40 MG TABLET SR 12HR PO NR (15:15)
[2019-04-21] MEDS: MONTELUKAST SODIUM 10MG TABLET PO SCH (16:04)
[2019-04-21] MEDS: NORTRIPTYLINE HCL 25MG CAPSULE PO SCH (20:51)
[2019-04-22] VITALS (11 sets, daily range): BP systolic 143–168; BP diastolic 61–111
[2019-04-22] MEDS: DILTIAZEM HCL 30MG TABLET PO SCH ×3 (00:35→11:40)
[2019-04-22] MEDS: IPRATROPIUM BROMIDE (0.02%) 0.5MG/2.5ML NEB HHN SCH ×5 (03:57→20:25)
[2019-04-22] MEDS: HYDROCODONE/ACETAMINOPHEN 10/325MG TABLET PO PRN ×4 (04:20→17:16)
[2019-04-22] MEDS: SILDENAFIL CITRATE 20MG TABLET PO SCH ×3 (06:00→21:24)
[2019-04-22] MEDS: SODIUM CHLORIDE 0.9% INJ 3ML FLUSH IVF SCH ×3 (06:19→21:23)
[2019-04-22] MEDS: THEOPHYLLINE ANHYDROUS 80 MG/15 ML 120ML PO SCH ×2 (06:22→13:25)
[2019-04-22] MEDS: FAMOTIDINE 20MG TABLET PO SCH ×2 (08:29→21:24)
[2019-04-22] MEDS: METHYLPREDNISOLONE SOD SUCC 40 MG/ML VIAL IV SCH ×2 (08:29→21:23)
[2019-04-22] MEDS: NICOTINE 21MG PATCH TD SCH (08:31)
[2019-04-22] MEDS: GUAIFENESIN 600MG ER TABLET PO SCH ×2 (08:37→21:23)
[2019-04-22] MEDS: LEVOFLOXACIN 500MG TABLET PO SCH (11:01)
[2019-04-22] MEDS: ENOXAPARIN 40MG/0.4ML SYR SUBCUT SCH (11:01)
[2019-04-22] MEDS ORDERED: DILTIAZEM HCL 60MG TABLET PO SCH (13:15)
[2019-04-22] MEDS: MONTELUKAST SODIUM 10MG TABLET PO SCH (17:12)
[2019-04-22] MEDS: DILTIAZEM HCL 60MG TABLET PO SCH ×2 (17:44→18:03)
[2019-04-22] MEDS: NORTRIPTYLINE HCL 25MG CAPSULE PO SCH (21:24)
[2019-04-22] MEDS: OXYCODONE HCL 20MG TABLET SR 12HR PO SCH (21:25)
[2019-04-23] VITALS (12 sets, daily range): BP systolic 120–166; BP diastolic 67–95
[2019-04-23] MEDS: IPRATROPIUM BROMIDE (0.02%) 0.5MG/2.5ML NEB HHN SCH ×6 (00:38→20:41)
[2019-04-23] MEDS: DILTIAZEM HCL 60MG TABLET PO SCH ×4 (00:52→17:25)
[2019-04-23] MEDS: HYDROCODONE/ACETAMINOPHEN 10/325MG TABLET PO PRN (01:57)
[2019-04-23] MEDS: SODIUM CHLORIDE 0.9% INJ 3ML FLUSH IVF SCH ×3 (06:02→22:03)
[2019-04-23] MEDS: SILDENAFIL CITRATE 20MG TABLET PO SCH ×3 (06:03→22:00)
[2019-04-23] MEDS: FAMOTIDINE 20MG TABLET PO SCH ×2 (09:16→22:01)
[2019-04-23] MEDS: PREDNISONE 20MG TABLET PO SCH (09:16)
[2019-04-23] MEDS: METHYLPREDNISOLONE SOD SUCC 40 MG/ML VIAL IV SCH ×2 (09:16→22:03)
[2019-04-23] MEDS: GUAIFENESIN 600MG ER TABLET PO SCH ×2 (09:16→22:03)
[2019-04-23] MEDS: OXYCODONE HCL 20MG TABLET SR 12HR PO SCH ×2 (09:17→22:00)
[2019-04-23] MEDS: LEVOFLOXACIN 500MG TABLET PO SCH (11:45)
[2019-04-23] MEDS: ENOXAPARIN 40MG/0.4ML SYR SUBCUT SCH (11:46)
[2019-04-23] MEDS: NICOTINE 21MG PATCH TD SCH (11:46)
[2019-04-23] MEDS: MONTELUKAST SODIUM 10MG TABLET PO SCH (17:24)
[2019-04-23] MEDS: NORTRIPTYLINE HCL 25MG CAPSULE PO SCH (22:03)
[2019-04-24] VITALS (11 sets, daily range): BP systolic 122–152; BP diastolic 69–88
[2019-04-24] MEDS: IPRATROPIUM BROMIDE (0.02%) 0.5MG/2.5ML NEB HHN SCH ×6 (00:38→21:20)
[2019-04-24] MEDS: DILTIAZEM HCL 60MG TABLET PO SCH ×4 (00:56→17:49)
[2019-04-24] MEDS: SODIUM CHLORIDE 0.9% INJ 3ML FLUSH IVF SCH ×3 (06:00→21:28)
[2019-04-24] MEDS: SILDENAFIL CITRATE 20MG TABLET PO SCH ×3 (07:03→21:27)
[2019-04-24] MEDS: GUAIFENESIN 600MG ER TABLET PO SCH ×2 (08:09→21:27)
[2019-04-24] MEDS: METHYLPREDNISOLONE SOD SUCC 40 MG/ML VIAL IV SCH ×2 (08:09→21:28)
[2019-04-24] MEDS: FAMOTIDINE 20MG TABLET PO SCH ×2 (08:09→21:27)
[2019-04-24] MEDS: PREDNISONE 20MG TABLET PO SCH (08:09)
[2019-04-24] MEDS: OXYCODONE HCL 20MG TABLET SR 12HR PO SCH ×2 (08:10→21:28)
[2019-04-24] MEDS: NICOTINE 21MG PATCH TD SCH (08:11)
[2019-04-24] MEDS: ENOXAPARIN 40MG/0.4ML SYR SUBCUT SCH (12:15)
[2019-04-24] MEDS: MONTELUKAST SODIUM 10MG TABLET PO SCH (17:14)
[2019-04-24] MEDS: ACETAMINOPHEN 325MG TABLET PO PRN (17:45)
[2019-04-24] MEDS: NORTRIPTYLINE HCL 25MG CAPSULE PO SCH (21:27)
[2019-04-25] VITALS (10 sets, daily range): BP systolic 122–148; BP diastolic 65–93
[2019-04-25] MEDS: DILTIAZEM HCL 60MG TABLET PO SCH ×4 (00:40→17:24)
[2019-04-25] MEDS: IPRATROPIUM BROMIDE (0.02%) 0.5MG/2.5ML NEB HHN SCH ×7 (01:05→21:50)
[2019-04-25] MEDS: SODIUM CHLORIDE 0.9% INJ 3ML FLUSH IVF SCH ×2 (06:00→14:09)
[2019-04-25] MEDS: SILDENAFIL CITRATE 20MG TABLET PO SCH ×2 (06:01→14:00)
[2019-04-25] MEDS: PREDNISONE 20MG TABLET PO SCH (08:18)
[2019-04-25] MEDS: OXYCODONE HCL 20MG TABLET SR 12HR PO SCH ×2 (08:18→19:58)
[2019-04-25] MEDS: NICOTINE 21MG PATCH TD SCH (08:19)
[2019-04-25] MEDS: METHYLPREDNISOLONE SOD SUCC 40 MG/ML VIAL IV SCH ×2 (08:19→21:33)
[2019-04-25] MEDS: GUAIFENESIN 600MG ER TABLET PO SCH ×2 (08:19→21:33)
[2019-04-25] MEDS: FAMOTIDINE 40MG TABLET PO SCH ×2 (09:19→21:34)
[2019-04-25 09:31] LABS: BG BASE EXCESS 7.7 mmol/L (-2.0-2.0); BG CARBOXYHEMOGLOBIN 0.7 % (0.5-1.5); BG DEOXYHEMOGLOBIN 7.2 % (0.0-5.0); BG FRACTION INSPIRED OXYGEN 21; BG HCO3 ACT 34.1 mmol/L (22.0-26.0); BG METHEMOGLOBIN 0.3 % (0.0-1.5); BG OXYGEN SATURATION 92.7 % (92.0-98.5); BG OXYHEMOGLOBIN 91.8 % (94.0-97.0); BG PCO2 54.2 mmHg (35.0-45.0); BG PH 7.417 (7.350-7.450); BG SAMPLE SITE RIGHT BRACHIAL; BG TOTAL HEMOGLOBIN 15.2 g/dL (12.0-18.0); BG VENT MODE ROOM AIR
[2019-04-25] MEDS ORDERED: LIDOCAINE HCL/PF 1% 2ML VIAL ONE (10:58)
[2019-04-25] MEDS: ENOXAPARIN 40MG/0.4ML SYR SUBCUT SCH (11:52)
[2019-04-25] MEDS ORDERED: HYDROCODONE/ACETAMINOPHEN 10/325MG TABLET PO PRN (17:15)
[2019-04-25] MEDS: MONTELUKAST SODIUM 10MG TABLET PO SCH (17:24)
[2019-04-25] MEDS: NORTRIPTYLINE HCL 25MG CAPSULE PO SCH ×2 (21:00→21:33)
== END 2019-04-25 21:50 | DRG 871 ==
LOC: ER 00:40 → 7WST 02:12 → EDBEDREQTM 02:17 → EDBEDREQ 02:17 → EDBEDREQSVC 02:17 → EDBEDREQTM 06:19 → ENRESERV 07:34 → 5EST 04-17 15:18
PROVIDERS: ADMIT Internal Medicine; ATTEND Internal Medicine
PROC: 5A09357 Assistance with Respiratory Ventilation, Less than 24 Consecutive Hours, Continuous Positive Airway Pressure (ICD-10-PCS; principal; 2019-04-16)
PROC: 5A09357 Assistance with Respiratory Ventilation, Less than 24 Consecutive Hours, Continuous Positive Airway Pressure (ICD-10-PCS; 2019-04-17)
PROC: 5A09357 Assistance with Respiratory Ventilation, Less than 24 Consecutive Hours, Continuous Positive Airway Pressure (ICD-10-PCS; 2019-04-18)
PROC: 5A09357 Assistance with Respiratory Ventilation, Less than 24 Consecutive Hours, Continuous Positive Airway Pressure (ICD-10-PCS; 2019-04-19)
PROC: 5A09357 Assistance with Respiratory Ventilation, Less than 24 Consecutive Hours, Continuous Positive Airway Pressure (ICD-10-PCS; 2019-04-20)
PROC: 5A09357 Assistance with Respiratory Ventilation, Less than 24 Consecutive Hours, Continuous Positive Airway Pressure (ICD-10-PCS; 2019-04-21)
PROC: 5A09357 Assistance with Respiratory Ventilation, Less than 24 Consecutive Hours, Continuous Positive Airway Pressure (ICD-10-PCS; 2019-04-22)
PROC: 5A09357 Assistance with Respiratory Ventilation, Less than 24 Consecutive Hours, Continuous Positive Airway Pressure (ICD-10-PCS; 2019-04-25)
DX: A41.9 Sepsis, unspecified organism (principal); J96.22 Acute and chronic respiratory failure with hypercapnia; I47.1 Supraventricular tachycardia; E87.2 Acidosis; J84.9 Interstitial pulmonary disease, unspecified; M48.54XA Collapsed vertebra, not elsewhere classified, thoracic region, initial encounter for fracture; G89.4 Chronic pain syndrome; I10 Essential (primary) hypertension; M54.9 Dorsalgia, unspecified; T48.6X5A Adverse effect of antiasthmatics, initial encounter; Y92.238 Other place in hospital as the place of occurrence of the external cause; J43.9 Emphysema, unspecified; F17.210 Nicotine dependence, cigarettes, uncomplicated; I27.21 Secondary pulmonary arterial hypertension; Z82.49 Family history of ischemic heart disease and other diseases of the circulatory system; Z99.81 Dependence on supplemental oxygen; Z91.81 History of falling; Z79.52 Long term (current) use of systemic steroids; Z79.899 Other long term (current) drug therapy
CPT/HCPCS: 36415; 36600; 71045; 71250; 80048; 80053; 80305; 81003; 82375; 82805; 83605; 83880; 84484; 85025; 87804; 93005; 94640; 94644; 94660; 96365; 97116; 97162; 97530; 99291; C1893; J1650; J1885; J1956; J2060; J2920; J2930; J3105; J3475; J3490; J7050; J7060; J7512; J7611; J7620

== ENCOUNTER 2019-05-24 20:13 | Inpatient (IN) | payer MEDICARE ==
[~2019-05-24] VITALS: Ht 162.6 cm; Wt 50.0 kg
[2019-05-24 20:13] VITALS: BP 161/100
[2019-05-24 20:15] VITALS: BP 161/100
[2019-05-24] MEDS ORDERED: DEXTROSE 50% WATER 50ML SYRINGE IV PRN (21:15)
[2019-05-24] MEDS: INSULIN LISPRO 100 UNITS/ML SUBCUT SCH (22:15)
[2019-05-24] MEDS: DILTIAZEM HCL 30MG TABLET PO SCH (22:32)
[2019-05-24] MEDS: OXYCODONE HCL 10MG TABLET SR 12HR PO SCH (22:33)
[2019-05-24] MEDS: BLOOD SUGAR DIAGNOSTIC STRIP TEST SCH (22:40)
[2019-05-25] MEDS: IPRATROPIUM/ALBUTEROL 0.5-3(2.5)MG/3ML NEB HHN SCH ×6 (00:08→20:35)
[2019-05-25] MEDS ORDERED: DILT60TA35 PO (04:30)
[2019-05-25] MEDS ORDERED: FAMO20TA8 PO (04:30)
[2019-05-25] MEDS ORDERED: FURO-151 PO (04:30)
[2019-05-25] MEDS ORDERED: HYDR-4133 MT (04:30)
[2019-05-25] MEDS ORDERED: P20 PO (04:30)
[2019-05-25] MEDS ORDERED: LACT10SO6 MT (04:30)
[2019-05-25] MEDS ORDERED: SPIR25TA6 PO (04:30)
[2019-05-25] MEDS ORDERED: CLON0.1T PO (04:30)
[2019-05-25] MEDS ORDERED: MONT10TA21 PO (04:30)
[2019-05-25] MEDS ORDERED: NORT25CA PO (04:30)
[2019-05-25] MEDS: DILTIAZEM HCL 30MG TABLET PO SCH ×3 (05:30→22:52)
[2019-05-25] MEDS: BLOOD SUGAR DIAGNOSTIC STRIP TEST SCH ×4 (05:39→21:13)
[2019-05-25] MEDS: INSULIN LISPRO 100 UNITS/ML SUBCUT SCH ×4 (05:53→21:00)
[2019-05-25] MEDS ORDERED: BLOOD SUGAR DIAGNOSTIC STRIP TEST SCH (06:30)
[2019-05-25 06:38] LABS: HEMATOCRIT. 36.2 % (36.0-48.0); HEMOGLOBIN. 11.9 g/dL (12.0-16.0); MEAN CORPUSCULAR HEMOGLOBIN 30.2 pg (28.0-32.0); MEAN CORPUSCULAR VOLUME 91.7 fL (81.0-99.0); PLATELET 348 x1000/uL (130-400); RED BLOOD CELL COUNT 3.95 mill/uL (4.2-5.4); RED CELL DISTRIBUTION WIDTH 14.3 % (11.6-14.6)
[2019-05-25 07:18] LABS: CHLORIDE 101 mEq/L (98-107)
[2019-05-25 07:53] VITALS: BP 121/78
[2019-05-25] MEDS: PANTOPRAZOLE 40MG DR TABLET PO SCH (08:18)
[2019-05-25] MEDS: METHYLPREDNISOLONE SOD SUCC 40 MG/ML VIAL IV SCH (08:42)
[2019-05-25] MEDS: ENOXAPARIN 40MG/0.4ML SYR SUBCUT SCH (08:42)
[2019-05-25] MEDS: VILANTEROL ORI SCH (09:00)
[2019-05-25] MEDS ORDERED: INSULIN LISPRO 100 UNITS/ML SUBCUT SCH (09:00)
[2019-05-25] MEDS: [UNRECOGNIZED DRUG - OTHER] ORI SCH (09:00)
[2019-05-25] MEDS ORDERED: DILTIAZEM HCL 30MG TABLET PO SCH (09:00)
[2019-05-25] MEDS ORDERED: OXYCODONE HCL 20MG TABLET SR 12HR PO SCH (09:00)
[2019-05-25] MEDS: OXYCODONE HCL 10MG TABLET SR 12HR PO SCH (09:15)
[2019-05-25 12:12] VITALS: BP 157/96
[2019-05-25] MEDS: LEVOFLOXACIN 250MG TABLET PO SCH (12:13)
[2019-05-25] MEDS ORDERED: BISACODYL 10MG SUPP PR PRN (13:45)
[2019-05-25] MEDS: BISACODYL 5MG TABLET PO PRN (14:44)
[2019-05-25] MEDS: SIMETHICONE 80MG TABLET CHEW PO PRN (14:44)
[2019-05-25] MEDS: HYDROCODONE/ACETAMINOPHEN 5/325MG TABLET PO PRN (14:45)
[2019-05-25 15:55] LABS: CLARITY URINE CLEAR (CLEAR); COLOR URINE YELLOW (YELLOW); KETONES URINE NEGATIVE (NEGATIVE); LEUKOCYTE ESTERASE URINE NEGATIVE (NEGATIVE); NITRITE URINE NEGATIVE (NEGATIVE); OCCULT BLOOD URINE 2+ (NEGATIVE); PH URINE 5.5 (4.5-8.0); PROTEIN URINE TRACE (NEGATIVE); SPECIFIC GRAVITY URINE 1.018 (1.005-1.030); UROBILINOGEN URINE 0.2 E.U./dL (0.2-1.0)
[2019-05-25 16:30] LABS: PLATELET ESTIMATE NORMAL
[2019-05-25 16:47] VITALS: BP 136/82
[2019-05-25 20:00] VITALS: BP 117/60
[2019-05-25] MEDS ORDERED: OXYCODONE HCL 10MG TABLET SR 12HR PO SCH (21:00)
[2019-05-25] MEDS ORDERED: GUAIFENESIN 600MG ER TABLET PO SCH (21:00)
[2019-05-25] MEDS: GUAIFENESIN 600MG ER TABLET PO SCH (21:12)
[2019-05-25] MEDS: FLUTICASONE PROPIONATE 50MCG/SPRAY BOTTLE BOTHNSTRLS SCH (21:14)
[2019-05-26] MEDS: IPRATROPIUM/ALBUTEROL 0.5-3(2.5)MG/3ML NEB HHN SCH ×6 (00:31→21:28)
[2019-05-26] MEDS: ACETYLCYSTEINE 100MG/ML 10% VIAL 4ML INH SCH ×4 (00:31→16:01)
[2019-05-26] MEDS: DILTIAZEM HCL 30MG TABLET PO SCH ×3 (05:31→21:30)
[2019-05-26] MEDS: INSULIN LISPRO 100 UNITS/ML SUBCUT SCH ×4 (05:32→21:00)
[2019-05-26] MEDS: OXYCODONE HCL 10MG TABLET SR 12HR PO SCH ×2 (05:32→17:27)
[2019-05-26] MEDS: BLOOD SUGAR DIAGNOSTIC STRIP TEST SCH ×4 (05:32→21:30)
[2019-05-26 07:11] LABS: HEMATOCRIT. 34.8 % (36.0-48.0); HEMOGLOBIN. 11.6 g/dL (12.0-16.0); MEAN CORPUSCULAR HEMOGLOBIN 30.4 pg (28.0-32.0); MEAN PLATELET VOLUME 6.8 fl (7.4-10.4); PLATELET 362 x1000/uL (130-400); RED BLOOD CELL COUNT 3.82 mill/uL (4.2-5.4); RED CELL DISTRIBUTION WIDTH 13.9 % (11.6-14.6)
[2019-05-26 07:25] LABS: CHLORIDE 99 mEq/L (98-107)
[2019-05-26 07:36] LABS: PHOSPHORUS 2.3 mg/dL (2.5-4.9)
[2019-05-26 07:39] LABS: TOTAL IRON BINDING CAPACITY 290 ug/dL (250-450)
[2019-05-26 08:01] VITALS: BP 149/95
[2019-05-26] MEDS: METHYLPREDNISOLONE SOD SUCC 40 MG/ML VIAL IV SCH (08:52)
[2019-05-26] MEDS: GUAIFENESIN 600MG ER TABLET PO SCH ×2 (08:53→21:29)
[2019-05-26] MEDS: PANTOPRAZOLE 40MG DR TABLET PO SCH (08:53)
[2019-05-26] MEDS: ENOXAPARIN 40MG/0.4ML SYR SUBCUT SCH (08:53)
[2019-05-26 08:59] LABS: FOLIC ACID (FOLATE) SERUM 10.6 ng/mL (>5.38)
[2019-05-26] MEDS: VILANTEROL ORI SCH (09:00)
[2019-05-26] MEDS: [UNRECOGNIZED DRUG - OTHER] ORI SCH (09:00)
[2019-05-26] MEDS: SIMETHICONE 80MG TABLET CHEW PO PRN (09:01)
[2019-05-26] MEDS: FLUTICASONE PROPIONATE 50MCG/SPRAY BOTTLE BOTHNSTRLS SCH ×2 (09:02→21:28)
[2019-05-26] MEDS: LEVOFLOXACIN 250MG TABLET PO SCH (11:13)
[2019-05-26 12:23] VITALS: BP 132/85
[2019-05-26] MEDS: HYDROCODONE/ACETAMINOPHEN 5/325MG TABLET PO PRN (12:27)
[2019-05-26 13:22] LABS: PLATELET ESTIMATE NORMAL
[2019-05-26 17:25] VITALS: BP 144/72
[2019-05-26] MEDS: NYSTATIN 100,000 UNITS/ML 5ML UDC SSW SCH (17:26)
[2019-05-26] MEDS ORDERED: POTASSIUM-SODIUM PHOSPHATE POWDER PACKET PO NR (18:33)
[2019-05-26] MEDS: BISACODYL 5MG TABLET PO PRN (19:02)
[2019-05-26 20:00] VITALS: BP 151/98
[2019-05-26] MEDS: MAGNESIUM OXIDE 400MG TABLET PO SCH (21:28)
[2019-05-26] MEDS: FAMOTIDINE 20MG TABLET PO SCH (21:29)
[2019-05-27] MEDS: NYSTATIN 100,000 UNITS/ML 5ML UDC SSW SCH ×4 (00:25→18:03)
[2019-05-27] MEDS: IPRATROPIUM/ALBUTEROL 0.5-3(2.5)MG/3ML NEB HHN SCH ×6 (02:00→21:11)
[2019-05-27] MEDS: DILTIAZEM HCL 30MG TABLET PO SCH ×3 (05:36→22:28)
[2019-05-27] MEDS: OXYCODONE HCL 10MG TABLET SR 12HR PO SCH ×2 (05:37→18:04)
[2019-05-27] MEDS: BLOOD SUGAR DIAGNOSTIC STRIP TEST SCH ×4 (05:37→21:00)
[2019-05-27] MEDS: INSULIN LISPRO 100 UNITS/ML SUBCUT SCH ×4 (05:37→21:00)
[2019-05-27 08:00] VITALS: BP 149/95
[2019-05-27] MEDS: ACETYLCYSTEINE 100MG/ML 10% VIAL 4ML INH SCH ×2 (09:07→15:48)
[2019-05-27] MEDS: FLUTICASONE PROPIONATE 50MCG/SPRAY BOTTLE BOTHNSTRLS SCH ×3 (11:00→22:29)
[2019-05-27] MEDS: ENOXAPARIN 40MG/0.4ML SYR SUBCUT SCH (11:00)
[2019-05-27] MEDS: MAGNESIUM OXIDE 400MG TABLET PO SCH ×2 (11:01→22:29)
[2019-05-27] MEDS: METHYLPREDNISOLONE SOD SUCC 40 MG/ML VIAL IV SCH (11:01)
[2019-05-27] MEDS: GUAIFENESIN 600MG ER TABLET PO SCH ×2 (11:01→22:29)
[2019-05-27] MEDS: FAMOTIDINE 20MG TABLET PO SCH ×2 (11:01→22:28)
[2019-05-27] MEDS: LEVOFLOXACIN 250MG TABLET PO SCH (11:01)
[2019-05-27] MEDS: HYDROCODONE/ACETAMINOPHEN 5/325MG TABLET PO PRN (12:32)
[2019-05-27] MEDS: PREDNISONE 20MG TABLET PO SCH (13:28)
[2019-05-27 20:00] VITALS: BP 149/80
[2019-05-28] MEDS: ACETYLCYSTEINE 100MG/ML 10% VIAL 4ML INH SCH ×3 (00:56→15:59)
[2019-05-28] MEDS: IPRATROPIUM/ALBUTEROL 0.5-3(2.5)MG/3ML NEB HHN SCH ×6 (04:15→19:53)
[2019-05-28] MEDS: BLOOD SUGAR DIAGNOSTIC STRIP TEST SCH ×4 (06:30→21:10)
[2019-05-28] MEDS: BISACODYL 5MG TABLET PO PRN (07:32)
[2019-05-28] MEDS: DILTIAZEM HCL 30MG TABLET PO SCH ×3 (07:32→21:10)
[2019-05-28] MEDS: OXYCODONE HCL 10MG TABLET SR 12HR PO SCH ×2 (07:33→17:17)
[2019-05-28] MEDS: NYSTATIN 100,000 UNITS/ML 5ML UDC SSW SCH ×5 (07:33→23:29)
[2019-05-28 08:17] VITALS: BP 148/96
[2019-05-28] MEDS: INSULIN LISPRO 100 UNITS/ML SUBCUT SCH ×4 (09:00→21:19)
[2019-05-28] MEDS ORDERED: MEDICATION NOT ON FORMULARY EA PO SCH (09:00)
[2019-05-28] MEDS: MAGNESIUM OXIDE 400MG TABLET PO SCH (09:44)
[2019-05-28] MEDS: FAMOTIDINE 20MG TABLET PO SCH ×2 (09:44→20:38)
[2019-05-28] MEDS: PREDNISONE 20MG TABLET PO SCH (09:45)
[2019-05-28] MEDS: GUAIFENESIN 600MG ER TABLET PO SCH ×2 (09:45→20:38)
[2019-05-28] MEDS: ENOXAPARIN 40MG/0.4ML SYR SUBCUT SCH (09:45)
[2019-05-28 11:10] LABS: BASOPHILS % 0.5 % (0.0-2.0); EOSINOPHILS % 0.2 % (0.0-5.0); HEMATOCRIT. 41.2 % (36.0-48.0); HEMOGLOBIN. 13.2 g/dL (12.0-16.0); LYMPHOCYTES % 10.8 % (20.0-50.0); MEAN CORPUSCULAR HEMOGLOBIN 29.8 pg (28.0-32.0); MEAN PLATELET VOLUME 6.6 fl (7.4-10.4); MONOCYTES % 7.1 % (2.0-8.0); NEUTROPHILS % 81.4 % (40.0-76.0); PLATELET 365 x1000/uL (130-400); RED BLOOD CELL COUNT 4.42 mill/uL (4.2-5.4); RED CELL DISTRIBUTION WIDTH 14.3 % (11.6-14.6)
[2019-05-28 11:23] LABS: CHLORIDE 95 mEq/L (98-107)
[2019-05-28 11:28] LABS: PHOSPHORUS 2.2 mg/dL (2.5-4.9)
[2019-05-28] MEDS: FLUTICASONE PROPIONATE 50MCG/SPRAY BOTTLE BOTHNSTRLS SCH (12:31)
[2019-05-28] MEDS: LEVOFLOXACIN 250MG TABLET PO SCH (12:32)
[2019-05-28] MEDS: HYDROCODONE/ACETAMINOPHEN 5/325MG TABLET PO PRN (12:33)
[2019-05-28 20:00] VITALS: BP 122/80
[2019-05-29] MEDS: IPRATROPIUM/ALBUTEROL 0.5-3(2.5)MG/3ML NEB HHN SCH ×6 (00:09→19:43)
[2019-05-29] MEDS: ACETYLCYSTEINE 100MG/ML 10% VIAL 4ML INH SCH ×2 (00:09→08:16)
[2019-05-29] MEDS: NYSTATIN 100,000 UNITS/ML 5ML UDC SSW SCH ×4 (06:05→23:26)
[2019-05-29] MEDS: OXYCODONE HCL 10MG TABLET SR 12HR PO SCH ×2 (06:06→17:03)
[2019-05-29] MEDS: BLOOD SUGAR DIAGNOSTIC STRIP TEST SCH ×4 (06:06→20:59)
[2019-05-29] MEDS: DILTIAZEM HCL 30MG TABLET PO SCH ×3 (06:31→21:00)
[2019-05-29 07:56] VITALS: BP 141/61
[2019-05-29] MEDS: FAMOTIDINE 20MG TABLET PO SCH ×2 (08:33→20:59)
[2019-05-29] MEDS: GUAIFENESIN 600MG ER TABLET PO SCH ×3 (08:33→20:59)
[2019-05-29] MEDS: ENOXAPARIN 40MG/0.4ML SYR SUBCUT SCH ×2 (08:33→08:48)
[2019-05-29] MEDS: PREDNISONE 20MG TABLET PO SCH (08:33)
[2019-05-29] MEDS: INSULIN LISPRO 100 UNITS/ML SUBCUT SCH ×4 (08:34→20:59)
[2019-05-29] MEDS: POTASSIUM-SODIUM PHOSPHATE POWDER PACKET PO SCH ×2 (11:30→17:05)
[2019-05-29] MEDS: LEVOFLOXACIN 250MG TABLET PO SCH (11:31)
[2019-05-29] MEDS: LACTULOSE 20G/30ML UDC PO SCH ×2 (11:31→17:03)
[2019-05-29 15:54] VITALS: BP 126/81
[2019-05-29] MEDS: HYDROCODONE/ACETAMINOPHEN 5/325MG TABLET PO PRN ×2 (15:57→21:36)
[2019-05-29 20:00] VITALS: BP 134/85
[2019-05-30] MEDS: ACETYLCYSTEINE 100MG/ML 10% VIAL 4ML INH SCH ×3 (00:28→16:44)
[2019-05-30] MEDS: IPRATROPIUM/ALBUTEROL 0.5-3(2.5)MG/3ML NEB HHN SCH ×7 (00:28→21:52)
[2019-05-30] MEDS: DILTIAZEM HCL 30MG TABLET PO SCH ×3 (06:04→22:13)
[2019-05-30] MEDS: OXYCODONE HCL 10MG TABLET SR 12HR PO SCH ×2 (06:04→22:13)
[2019-05-30] MEDS: NYSTATIN 100,000 UNITS/ML 5ML UDC SSW SCH ×3 (06:04→17:14)
[2019-05-30] MEDS: BLOOD SUGAR DIAGNOSTIC STRIP TEST SCH ×4 (06:13→21:00)
[2019-05-30] MEDS: INSULIN LISPRO 100 UNITS/ML SUBCUT SCH ×4 (06:13→21:00)
[2019-05-30 07:48] VITALS: BP 132/70
[2019-05-30] MEDS: FAMOTIDINE 20MG TABLET PO SCH ×2 (08:20→22:14)
[2019-05-30] MEDS: GUAIFENESIN 600MG ER TABLET PO SCH ×2 (08:20→22:14)
[2019-05-30] MEDS: PREDNISONE 20MG TABLET PO SCH (08:20)
[2019-05-30] MEDS: ENOXAPARIN 40MG/0.4ML SYR SUBCUT SCH (08:21)
[2019-05-30] MEDS: LEVOFLOXACIN 250MG TABLET PO SCH (11:11)
[2019-05-30 14:08] LABS: 25-HYDROXY VITAMIN D3 14 ng/mL (.)
[2019-05-30 15:51] LABS: HEMATOCRIT. 35.5 % (36.0-48.0); HEMOGLOBIN. 11.6 g/dL (12.0-16.0); MEAN CORPUSCULAR HEMOGLOBIN 30.4 pg (28.0-32.0); MEAN CORPUSCULAR VOLUME 93.4 fL (81.0-99.0); MEAN PLATELET VOLUME 6.6 fl (7.4-10.4); PLATELET 352 x1000/uL (130-400); RED CELL DISTRIBUTION WIDTH 14.6 % (11.6-14.6)
[2019-05-30 16:13] LABS: CHLORIDE 98 mEq/L (98-107)
[2019-05-30 16:15] LABS: CHLORIDE 99 mEq/L (98-107)
[2019-05-30 16:18] LABS: PHOSPHORUS 2.7 mg/dL (2.5-4.9)
[2019-05-30 16:40] VITALS: BP 135/84
[2019-05-30 17:05] VITALS: BP 135/83
[2019-05-30] MEDS: HYDROCODONE/ACETAMINOPHEN 5/325MG TABLET PO PRN (17:16)
[2019-05-30 17:17] LABS: PLATELET ESTIMATE NORMAL
[2019-05-30 18:33] LABS: CLARITY URINE CLEAR (CLEAR); COLOR URINE YELLOW (YELLOW); KETONES URINE NEGATIVE (NEGATIVE); LEUKOCYTE ESTERASE URINE NEGATIVE (NEGATIVE); NITRITE URINE NEGATIVE (NEGATIVE); OCCULT BLOOD URINE NEGATIVE (NEGATIVE); PH URINE 7.5 (4.5-8.0); PROTEIN URINE 1+ (NEGATIVE); SPECIFIC GRAVITY URINE 1.018 (1.005-1.030); UROBILINOGEN URINE 0.2 E.U./dL (0.2-1.0)
[2019-05-30 21:27] VITALS: BP 128/75
[2019-05-31] MEDS: NYSTATIN 100,000 UNITS/ML 5ML UDC SSW SCH ×4 (00:13→12:15)
[2019-05-31] MEDS: IPRATROPIUM/ALBUTEROL 0.5-3(2.5)MG/3ML NEB HHN SCH ×7 (00:20→21:51)
[2019-05-31] MEDS: ACETYLCYSTEINE 100MG/ML 10% VIAL 4ML INH SCH (00:20)
[2019-05-31] MEDS: DILTIAZEM HCL 30MG TABLET PO SCH ×3 (05:58→21:50)
[2019-05-31] MEDS: INSULIN LISPRO 100 UNITS/ML SUBCUT SCH ×4 (05:59→21:00)
[2019-05-31] MEDS: OXYCODONE HCL 10MG TABLET SR 12HR PO SCH (05:59)
[2019-05-31] MEDS: BLOOD SUGAR DIAGNOSTIC STRIP TEST SCH ×4 (05:59→21:50)
[2019-05-31 08:00] VITALS: BP 144/83
[2019-05-31] MEDS: PREDNISONE 20MG TABLET PO SCH (08:06)
[2019-05-31] MEDS: FAMOTIDINE 20MG TABLET PO SCH ×2 (08:06→21:49)
[2019-05-31] MEDS: GUAIFENESIN 600MG ER TABLET PO SCH ×2 (08:06→21:49)
[2019-05-31] MEDS: ENOXAPARIN 40MG/0.4ML SYR SUBCUT SCH (08:07)
[2019-05-31] MEDS: LEVOFLOXACIN 250MG TABLET PO SCH (12:15)
[2019-05-31] MEDS: SIMETHICONE 80MG TABLET CHEW PO PRN (14:50)
[2019-05-31] MEDS: HYDROCODONE/ACETAMINOPHEN 5/325MG TABLET PO PRN (17:28)
[2019-05-31 20:00] VITALS: BP 158/88
[2019-05-31] MEDS: BUDESONIDE 0.5MG/2ML NEB HHN SCH (21:10)
[2019-06-01] MEDS: IPRATROPIUM/ALBUTEROL 0.5-3(2.5)MG/3ML NEB HHN SCH ×5 (00:49→20:11)
[2019-06-01] MEDS: SIMETHICONE 80MG TABLET CHEW PO PRN (03:34)
[2019-06-01] MEDS: DILTIAZEM HCL 30MG TABLET PO SCH ×3 (06:00→21:09)
[2019-06-01] MEDS: BLOOD SUGAR DIAGNOSTIC STRIP TEST SCH ×4 (06:20→21:00)
[2019-06-01] MEDS: HYDROCODONE/ACETAMINOPHEN 5/325MG TABLET PO PRN ×4 (06:22→23:53)
[2019-06-01] MEDS: INSULIN LISPRO 100 UNITS/ML SUBCUT SCH ×4 (06:45→21:00)
[2019-06-01 08:11] VITALS: BP 118/66
[2019-06-01] MEDS: FAMOTIDINE 20MG TABLET PO SCH ×2 (08:21→21:09)
[2019-06-01] MEDS: PREDNISONE 20MG TABLET PO SCH ×2 (08:21→10:15)
[2019-06-01] MEDS: GUAIFENESIN 600MG ER TABLET PO SCH ×2 (08:21→21:09)
[2019-06-01] MEDS: ENOXAPARIN 40MG/0.4ML SYR SUBCUT SCH (08:21)
[2019-06-01] MEDS: LEVOFLOXACIN 250MG TABLET PO SCH (10:14)
[2019-06-01] MEDS: BUDESONIDE 0.5MG/2ML NEB HHN SCH ×2 (10:55→20:11)
[2019-06-01] MEDS ORDERED: ERGOCALCIFEROL 50000UNITS CAPSULE PO SCH (14:30)
[2019-06-01 20:00] VITALS: BP 140/83
[2019-06-02] MEDS: IPRATROPIUM/ALBUTEROL 0.5-3(2.5)MG/3ML NEB HHN SCH ×6 (00:20→21:10)
[2019-06-02] MEDS: BLOOD SUGAR DIAGNOSTIC STRIP TEST SCH ×3 (05:49→16:34)
[2019-06-02] MEDS: DILTIAZEM HCL 30MG TABLET PO SCH ×2 (05:56→13:20)
[2019-06-02] MEDS: HYDROCODONE/ACETAMINOPHEN 5/325MG TABLET PO PRN ×2 (06:00→12:36)
[2019-06-02] MEDS: BUDESONIDE 0.5MG/2ML NEB HHN SCH ×2 (07:31→21:10)
[2019-06-02 07:53] VITALS: BP 139/80
[2019-06-02] MEDS: GUAIFENESIN 600MG ER TABLET PO SCH ×2 (08:29→21:00)
[2019-06-02] MEDS: FAMOTIDINE 20MG TABLET PO SCH ×2 (08:29→21:00)
[2019-06-02] MEDS: ENOXAPARIN 40MG/0.4ML SYR SUBCUT SCH (08:30)
[2019-06-02] MEDS: INSULIN LISPRO 100 UNITS/ML SUBCUT SCH ×3 (09:00→16:34)
[2019-06-02] MEDS ORDERED: TRAMADOL 50MG TABLET PO PRN (14:30)
[2019-06-02] MEDS: OXYCODONE HCL 5MG TABLET PO PRN (16:27)
[2019-06-03] MEDS: IPRATROPIUM/ALBUTEROL 0.5-3(2.5)MG/3ML NEB HHN SCH ×5 (01:20→20:48)
[2019-06-03 05:00] VITALS: BP 150/85
[2019-06-03] MEDS: DILTIAZEM HCL 30MG TABLET PO SCH ×3 (05:44→21:05)
[2019-06-03] MEDS: OXYCODONE HCL 5MG TABLET PO PRN ×3 (05:50→23:14)
[2019-06-03] MEDS: BLOOD SUGAR DIAGNOSTIC STRIP TEST SCH ×4 (05:50→21:00)
[2019-06-03] MEDS: INSULIN LISPRO 100 UNITS/ML SUBCUT SCH ×4 (05:53→21:00)
[2019-06-03 06:07] LABS: BASOPHILS % 0.7 % (0.0-2.0); EOSINOPHILS % 0.2 % (0.0-5.0); HEMATOCRIT. 32.5 % (36.0-48.0); LYMPHOCYTES % 14.2 % (20.0-50.0); MEAN CORPUSCULAR HEMOGLOBIN 31.2 pg (28.0-32.0); MEAN CORPUSCULAR VOLUME 92.5 fL (81.0-99.0); MEAN PLATELET VOLUME 6.5 fl (7.4-10.4); MONOCYTES % 7.9 % (2.0-8.0); PLATELET 273 x1000/uL (130-400); RED BLOOD CELL COUNT 3.52 mill/uL (4.2-5.4); RED CELL DISTRIBUTION WIDTH 15.2 % (11.6-14.6)
[2019-06-03 06:38] LABS: CHLORIDE 103 mEq/L (98-107)
[2019-06-03 08:13] VITALS: BP 132/78
[2019-06-03] MEDS: PREDNISONE 20MG TABLET PO SCH (08:20)
[2019-06-03] MEDS: ENOXAPARIN 40MG/0.4ML SYR SUBCUT SCH (08:20)
[2019-06-03] MEDS: FAMOTIDINE 20MG TABLET PO SCH ×2 (08:20→21:04)
[2019-06-03] MEDS: GUAIFENESIN 600MG ER TABLET PO SCH ×2 (08:20→21:00)
[2019-06-03] MEDS: BUDESONIDE 0.5MG/2ML NEB HHN SCH ×2 (09:35→20:48)
[2019-06-03] MEDS: HYDROCODONE/ACETAMINOPHEN 5/325MG TABLET PO PRN ×2 (10:12→19:34)
[2019-06-03 21:05] VITALS: BP 116/86
[2019-06-04] MEDS: IPRATROPIUM/ALBUTEROL 0.5-3(2.5)MG/3ML NEB HHN SCH ×6 (01:20→20:51)
[2019-06-04] MEDS: HYDROCODONE/ACETAMINOPHEN 5/325MG TABLET PO PRN ×4 (02:48→20:58)
[2019-06-04] MEDS: INSULIN LISPRO 100 UNITS/ML SUBCUT SCH ×4 (06:32→20:59)
[2019-06-04] MEDS: BLOOD SUGAR DIAGNOSTIC STRIP TEST SCH ×4 (06:32→20:59)
[2019-06-04] MEDS: DILTIAZEM HCL 30MG TABLET PO SCH ×3 (06:32→21:01)
[2019-06-04 07:56] VITALS: BP 115/67
[2019-06-04] MEDS: ENOXAPARIN 40MG/0.4ML SYR SUBCUT SCH (08:40)
[2019-06-04] MEDS: PREDNISONE 20MG TABLET PO SCH (08:40)
[2019-06-04] MEDS: FAMOTIDINE 20MG TABLET PO SCH ×2 (08:41→20:58)
[2019-06-04] MEDS: GUAIFENESIN 600MG ER TABLET PO SCH ×2 (08:41→20:59)
[2019-06-04] MEDS: OXYCODONE HCL 5MG TABLET PO PRN ×2 (08:51→17:30)
[2019-06-04 17:06] VITALS: BP 103/78
[2019-06-04 20:00] VITALS: BP 138/82
[2019-06-05] MEDS: IPRATROPIUM/ALBUTEROL 0.5-3(2.5)MG/3ML NEB HHN SCH ×6 (00:36→21:17)
[2019-06-05] MEDS: OXYCODONE HCL 5MG TABLET PO PRN ×3 (04:57→20:18)
[2019-06-05] MEDS: DILTIAZEM HCL 30MG TABLET PO SCH ×3 (05:01→21:25)
[2019-06-05] MEDS: INSULIN LISPRO 100 UNITS/ML SUBCUT SCH ×4 (06:41→20:27)
[2019-06-05] MEDS: BLOOD SUGAR DIAGNOSTIC STRIP TEST SCH ×5 (06:41→20:22)
[2019-06-05 08:05] VITALS: BP 105/75
[2019-06-05] MEDS: GUAIFENESIN 600MG ER TABLET PO SCH ×2 (09:19→20:21)
[2019-06-05] MEDS: ENOXAPARIN 40MG/0.4ML SYR SUBCUT SCH (09:19)
[2019-06-05] MEDS: PREDNISONE 20MG TABLET PO SCH (09:19)
[2019-06-05] MEDS: FAMOTIDINE 20MG TABLET PO SCH ×2 (09:19→20:21)
[2019-06-05] MEDS: SIMETHICONE 80MG TABLET CHEW PO PRN (16:28)
[2019-06-05] MEDS: HYDROCODONE/ACETAMINOPHEN 5/325MG TABLET PO PRN ×2 (17:29→23:29)
[2019-06-05 20:00] VITALS: BP 155/91
[2019-06-06] MEDS: OXYCODONE HCL 5MG TABLET PO PRN ×2 (04:16→11:52)
[2019-06-06] MEDS: DILTIAZEM HCL 30MG TABLET PO SCH ×3 (05:55→22:00)
[2019-06-06] MEDS: BLOOD SUGAR DIAGNOSTIC STRIP TEST SCH ×4 (05:55→21:00)
[2019-06-06] MEDS: INSULIN LISPRO 100 UNITS/ML SUBCUT SCH ×4 (06:01→21:00)
[2019-06-06] MEDS: HYDROCODONE/ACETAMINOPHEN 5/325MG TABLET PO PRN ×2 (07:28→16:43)
[2019-06-06 08:00] VITALS: BP 141/80
[2019-06-06] MEDS: IPRATROPIUM/ALBUTEROL 0.5-3(2.5)MG/3ML NEB HHN SCH ×4 (08:54→19:59)
[2019-06-06] MEDS: GUAIFENESIN 600MG ER TABLET PO SCH ×3 (09:00→21:00)
[2019-06-06] MEDS: FAMOTIDINE 20MG TABLET PO SCH ×2 (09:28→21:00)
[2019-06-06] MEDS: PREDNISONE 20MG TABLET PO SCH (09:28)
[2019-06-06] MEDS: ENOXAPARIN 40MG/0.4ML SYR SUBCUT SCH (09:29)
[2019-06-07] MEDS: IPRATROPIUM/ALBUTEROL 0.5-3(2.5)MG/3ML NEB HHN SCH ×4 (01:47→12:19)
[2019-06-07] MEDS: OXYCODONE HCL 5MG TABLET PO PRN ×2 (06:45→15:50)
[2019-06-07] MEDS: BLOOD SUGAR DIAGNOSTIC STRIP TEST SCH ×2 (06:49→11:15)
[2019-06-07] MEDS: DILTIAZEM HCL 30MG TABLET PO SCH ×2 (06:49→14:11)
[2019-06-07 08:00] VITALS: BP 141/72
[2019-06-07] MEDS: PREDNISONE 20MG TABLET PO SCH (08:59)
[2019-06-07] MEDS: GUAIFENESIN 600MG ER TABLET PO SCH (09:00)
[2019-06-07] MEDS: ENOXAPARIN 40MG/0.4ML SYR SUBCUT SCH (09:00)
[2019-06-07] MEDS: FAMOTIDINE 20MG TABLET PO SCH (09:03)
[2019-06-07] MEDS: INSULIN LISPRO 100 UNITS/ML SUBCUT SCH (12:21)
[2019-06-07] MEDS: HYDROCODONE/ACETAMINOPHEN 5/325MG TABLET PO PRN (12:27)
[2019-06-07 13:20] VITALS: BP 138/87
[2019-06-07] MEDS: SIMETHICONE 80MG TABLET CHEW PO PRN (14:13)
[2019-06-07 15:50] VITALS: BP 130/79
== END 2019-06-07 16:30 | disposition home health service (06) | DRG 73 ==
PROVIDERS: ADMIT Physical Medicine & Rehabilitation Spinal Cord Injury Medicine; ATTEND Hospitalist
DX: G62.81 Critical illness polyneuropathy (principal); G82.50 Quadriplegia, unspecified; A41.9 Sepsis, unspecified organism; J69.0 Pneumonitis due to inhalation of food and vomit; G92 Toxic encephalopathy; J96.22 Acute and chronic respiratory failure with hypercapnia; I50.30 Unspecified diastolic (congestive) heart failure; J44.1 Chronic obstructive pulmonary disease with (acute) exacerbation; B37.0 Candidal stomatitis; J98.11 Atelectasis; G89.4 Chronic pain syndrome; F09 Unspecified mental disorder due to known physiological condition; F17.210 Nicotine dependence, cigarettes, uncomplicated; F39 Unspecified mood [affective] disorder; I07.1 Rheumatic tricuspid insufficiency; I11.0 Hypertensive heart disease with heart failure; I27.20 Pulmonary hypertension, unspecified; J31.0 Chronic rhinitis; E78.5 Hyperlipidemia, unspecified; E11.9 Type 2 diabetes mellitus without complications; D64.9 Anemia, unspecified; B37.9 Candidiasis, unspecified; R13.10 Dysphagia, unspecified; E55.9 Vitamin D deficiency, unspecified; R00.0 Tachycardia, unspecified; M54.5 Low back pain; R41.89 Other symptoms and signs involving cognitive functions and awareness; E11.42 Type 2 diabetes mellitus with diabetic polyneuropathy; M71.21 Synovial cyst of popliteal space [Baker], right knee; T38.0X5A Adverse effect of glucocorticoids and synthetic analogues, initial encounter; R26.89 Other abnormalities of gait and mobility; Z99.81 Dependence on supplemental oxygen; Z86.73 Personal history of transient ischemic attack (TIA), and cerebral infarction without residual deficits
CPT/HCPCS: 36415; 71045; 80048; 80053; 81003; 82140; 82306; 82607; 82728; 82746; 82962; 83540; 83550; 83735; 84100; 84134; 84443; 85025; 92523; 92610; 93970; 94640; 97110; 97116; 97162; 97166; 97530; 97535; J1650; J1815; J2920; J7512; J7608; J7626

== ENCOUNTER 2019-07-07 00:41 | Emergency (ER) | payer MEDICARE ==
[~2019-07-07] VITALS: Ht 167.6 cm; Wt 56.0 kg
[~2019-07-07 00:41] MED LIST changes: -ALBU2.5V13 NEB; -AMLO2.5T45 MT; -CARI350T28 MT; +CLON0.1T PO; +DILT60TA35 PO; +FAMO20TA8 PO; -FLUT1DIS3 INH; +FURO-151 PO; -HYDR-4001 MT; -HYDR-4009 MT; +HYDR-4133 MT; -IPRA3AMP9 NEB; +LACT10SO6 MT; -LISI30TA36 MT; +MONT10TA21 PO; +NORT25CA PO; -OXYC-611 MT; -P20 MT; +P20 PO; -PANT40TA4 PO; +SPIR25TA6 PO; -ZOLP5TAB2 PO
[2019-07-07] MEDS ORDERED: HYDROCODONE/ACETAMINOPHEN 5/325MG TABLET PO ONE (02:00)
[2019-07-07 02:27] LABS: CHLORIDE 102 mEq/L (98-107); INR 1.1; PROTHROMBIN TIME 11.6 sec (9.6-11.0)
[2019-07-07 02:30] LABS: BASOPHILS % 1.3 % (0.0-2.0); EOSINOPHILS % 0.6 % (0.0-5.0); HEMATOCRIT. 37.5 % (36.0-48.0); HEMOGLOBIN. 12.3 g/dL (12.0-16.0); LYMPHOCYTES % 24.1 % (20.0-50.0); MEAN CORPUSCULAR HEMOGLOBIN 30.2 pg (28.0-32.0); MEAN CORPUSCULAR VOLUME 92.5 fL (81.0-99.0); MEAN PLATELET VOLUME 6.4 fl (7.4-10.4); MONOCYTES % 8.7 % (2.0-8.0); NEUTROPHILS % 65.3 % (40.0-76.0); PLATELET 308 x1000/uL (130-400); RED BLOOD CELL COUNT 4.06 mill/uL (4.2-5.4); RED CELL DISTRIBUTION WIDTH 15.8 % (11.6-14.6)
[2019-07-07] MEDS ORDERED: ALBUTEROL (0.083%) 2.5MG/3ML NEB HHN SCH (04:08)
[2019-07-07] MEDS ORDERED: IPRATROPIUM BROMIDE (0.02%) 0.5MG/2.5ML NEB HHN SCH (04:08)
[2019-07-07] MEDS ORDERED: MORPHINE SULFATE 4 MG/ML CPJ (NOT FOR IM USE) IV SCH (04:15)
[2019-07-07] MEDS ORDERED: AMOXICILLIN/POTASSIUM CLAVULANATE 875/125MG TAB PO ONE (04:45)
[2019-07-07 04:55] LABS: CLARITY URINE TURBID (CLEAR); COLOR URINE YELLOW (YELLOW); KETONES URINE NEGATIVE (NEGATIVE); LEUKOCYTE ESTERASE URINE NEGATIVE (NEGATIVE); NITRITE URINE NEGATIVE (NEGATIVE); OCCULT BLOOD URINE NEGATIVE (NEGATIVE); PROTEIN URINE NEGATIVE (NEGATIVE); SPECIFIC GRAVITY URINE 1.017 (1.005-1.030); UROBILINOGEN URINE 0.2 E.U./dL (0.2-1.0)
[2019-07-07] MEDS ORDERED: HYDROCODONE/ACETAMINOPHEN 5/325MG TABLET PO STA (06:36)
[2019-07-07] MEDS ORDERED: METHYLPREDNISOLONE SOD SUCC 125 MG/2 ML VIAL IV STA (06:36)
[2019-07-07] MEDS ORDERED: HALOPERIDOL 5MG TABLET PO ONE (06:45)
[2019-07-07] MEDS ORDERED: LORAZEPAM 1MG TABLET PO ONE (06:45)
[2019-07-07] MEDS ORDERED: CLONIDINE 0.1MG TABLET PO PRN ×2 (08:30)
[2019-07-07] MEDS ORDERED: POTASSIUM CHLORIDE 20MEQ TABLET SR PO ONE (08:30)
[2019-07-07] MEDS ORDERED: GUAIFENESIN 200MG/10ML SUGAR FREE UDC PO PRN ×2 (08:30)
[2019-07-07] MEDS ORDERED: TRAMADOL 50MG TABLET PO PRN (08:30)
[2019-07-07] MEDS ORDERED: IPRATROPIUM/ALBUTEROL 0.5-3(2.5)MG/3ML NEB NEB PRN ×2 (08:30)
[2019-07-07] MEDS ORDERED: ENOXAPARIN 40MG/0.4ML SYR SUBCUT SCH ×2 (08:30→10:00)
[2019-07-07] MEDS ORDERED: ZOLPIDEM TARTRATE 5MG TABLET PO PRN ×2 (08:30)
[2019-07-07] MEDS ORDERED: ONDANSETRON HCL 4MG/2ML INJ IV PRN ×2 (08:30)
[2019-07-07] MEDS ORDERED: MAGNESIUM/ALUMINUM HYDROXIDE/SIMETHICONE 30ML UDC PO PRN ×2 (08:30)
[2019-07-07] MEDS ORDERED: ACETAMINOPHEN 325MG TABLET PO PRN ×4 (08:30)
[2019-07-07] MEDS ORDERED: DOCUSATE SODIUM 100MG CAPSULE PO PRN ×2 (08:30)
[2019-07-07] MEDS ORDERED: KCL 20MEQ/100ML PREMIX 100 ML IV ONE (08:30)
[2019-07-07] MEDS ORDERED: HALOPERIDOL LACTATE 5MG/ML VIAL IM PRN (08:30)
[2019-07-07] MEDS ORDERED: LORAZEPAM 0.5MG TABLET PO PRN (08:30)
[2019-07-07] MEDS ORDERED: ASPIRIN 325MG EC TABLET PO SCH (09:00)
[2019-07-07] MEDS ORDERED: LEVOFLOXACIN 500MG PREMIX 100 ML IV SCH (09:15)
[2019-07-07] MEDS ORDERED: FAMOTIDINE 20MG TABLET PO SCH (09:15)
[2019-07-07] MEDS: KETOROLAC 15MG/ML VIAL IV PRN ×2 (10:05→17:32)
[2019-07-07] MEDS: GUAIFENESIN/DM 600MG/30MG ER TAB 12HR PO SCH ×2 (10:08→20:55)
[2019-07-07] MEDS: DILTIAZEM HCL 60MG TABLET PO SCH ×2 (13:00→20:55)
[2019-07-07] MEDS: METHYLPREDNISOLONE SOD SUCC 125 MG/2 ML VIAL IV SCH ×2 (13:00→20:55)
[2019-07-07] MEDS ORDERED: SILDENAFIL CITRATE 20MG TABLET PO NR (14:45)
[2019-07-07 14:50] LABS: CREATINE KINASE MB FRACTION 4.7 ng/mL (0.5-3.6)
[2019-07-07] MEDS: IPRATROPIUM/ALBUTEROL 0.5-3(2.5)MG/3ML NEB HHN SCH ×2 (15:48→22:18)
[2019-07-07 20:13] VITALS: BP 117/75
[2019-07-07] MEDS ORDERED: SILDENAFIL CITRATE 20MG TABLET PO SCH (22:00)
[2019-07-08] MEDS ORDERED: LEVOFLOXACIN 500MG PREMIX 100 ML IV SCH (10:00)
[2019-07-08 10:32] LABS: *BARBITURATES SCREEN URINE NEGATIVE (NEGATIVE); *BENZODIAZEPINES SCREEN URINE NEGATIVE (NEGATIVE); *COCAINE SCREEN URINE NEGATIVE (NEGATIVE)
[2019-07-08 10:33] LABS: *AMPHETAMINES SCREEN URINE NEGATIVE (NEGATIVE); CANNABINOID URINE SCREEN NEGATIVE (NEGATIVE); METHADONE URINE SCREEN NEGATIVE (NEGATIVE); OPIATES URINE SCREEN PRESUMTIVE POSITIVE (NEGATIVE); PHENCYCLIDINE URINE SCREEN NEGATIVE (NEGATIVE)
== END 2019-07-07 23:30 | disposition left against medical advice (07) ==
LOC: ER 00:41 → SUPCPDRO 08:13 → ER 23:30 → CANBEDREQ 07-08 02:47
DX: J18.9 Pneumonia, unspecified organism (principal); J44.1 Chronic obstructive pulmonary disease with (acute) exacerbation; I11.0 Hypertensive heart disease with heart failure; I50.32 Chronic diastolic (congestive) heart failure; J96.00 Acute respiratory failure, unspecified whether with hypoxia or hypercapnia; I27.20 Pulmonary hypertension, unspecified; E11.9 Type 2 diabetes mellitus without complications; E87.6 Hypokalemia; Z87.891 Personal history of nicotine dependence; K21.9 Gastro-esophageal reflux disease without esophagitis; Z91.011 Allergy to milk products
CPT/HCPCS: 36415; 71045; 80053; 80061; 80305; 81003; 82550; 82553; 83036; 83880; 84484; 85025; 85610; 93005; 93970; 94640; 96365; 96375; 96376; 99285; J1885; J1956; J2270; J2930

== ENCOUNTER 2019-07-28 15:46 | Emergency (ER) | payer MEDICARE ==
[~2019-07-28] VITALS: Ht 160 cm; Wt 51.0 kg
[2019-07-28] MEDS ORDERED: OXYC-105 PO (15:54)
[2019-07-28] MEDS ORDERED: ALBUTEROL (0.083%) 2.5MG/3ML NEB HHN STA (16:39)
[2019-07-28] MEDS ORDERED: IPRATROPIUM BROMIDE (0.02%) 0.5MG/2.5ML NEB HHN STA (16:39)
[2019-07-28] MEDS ORDERED: HYDROCODONE/ACETAMINOPHEN 5/325MG TABLET PO ONE (16:45)
[2019-07-28] MEDS ORDERED: KETOROLAC 15MG/ML VIAL IV ONE (16:45)
[2019-07-28 19:32] VITALS: BP 152/93
== END 2019-07-28 21:16 | disposition home or self-care (01) ==
LOC: ER 15:46
DX: J44.1 Chronic obstructive pulmonary disease with (acute) exacerbation (principal); G89.29 Other chronic pain; M54.5 Low back pain; E11.9 Type 2 diabetes mellitus without complications; I10 Essential (primary) hypertension; Z99.81 Dependence on supplemental oxygen; Z91.011 Allergy to milk products; Z79.899 Other long term (current) drug therapy
CPT/HCPCS: 71045; 93005; 94640; 96374; 99283; J1885